=== PATIENT | female | born 1960 | race Caucasian/White ===

== ENCOUNTER 2016-06-08 09:31 | Day surgery (SDC) | payer MEDICARE ==
[2016-06-06 10:36] VITALS: BMI 31.4
[~2016-06-08 09:31] MED LIST: DEXAMETHASONE SOD PHOSPHATE 10 MG/ML 1 ML VIAL IV ONE; HYDROmorphone 1 MG/ML 1 ML SYRINGE IVP PRN; LACTATED RINGERS 1,000 ML IV SCH; MIDAZOLAM 2 MG/2 ML VIAL IV PRN; ONDANSETRON 4 MG/2 ML VIAL IVP ONE; Pre Op ABX Message 1 EACH MISC MISCELLANE ONE; SCOPOLAMINE 1.5MG/72HR PATCH TRANSDERM ONE
[2016-06-08] MEDS ORDERED: LIDOCAINE 1% 20 ML VIAL (10MG/ML) FOR IV START INTRADERMA ONE (10:34)
--- NOTE | 2016-06-08 10:52 | CT ---
EXAMINATION TYPE: CT Chest wo con Veran Protocol DATE OF EXAM: 06/08/2016 10:24 AM COMPARISON: NONE HISTORY: VERAN exam for bronchial navigation. Nodule. CT DLP: 1272 mGycm Automated exposure control for dose reduction was used. FINDINGS: The ascending thoracic aorta at the level of the main pulmonary artery is 3.9 cm. Main pulmonary rosario ry at the bifurcation is 3.1 cm. No enlarged mediastinal or hilar adenopathy is evident. A couple of small pretracheal lymph nodes are present. Emphysematous changes are evident within the lung donovan. There is a consolidation or mass in the rig ht lower lobe superior segment measuring approximately 6.4 x 2.4 cm. Series 3 image 36. Bronchial air ways are patent. Cavitation within this may be present. IMPRESSION: RIGHT LOWER LOBE MASS WITH POSSIBLE CAVITATION OR PATENT BRONCHIAL AIRWAYS.
[2016-06-08] MEDS ORDERED: SUCCINYLCHOLINE CHLORIDE 100 MG/5 ML SYR IV ONE (11:44)
[2016-06-08] MEDS ORDERED: fentaNYL (PF) 50 MCG/ML 2 ML AMP ONE (11:44)
[2016-06-08] MEDS ORDERED: MIDAZOLAM 2 MG/2 ML VIAL ONE (11:44)
[2016-06-08] MEDS ORDERED: NEOSTIGMINE 1 MG/ML 10 ML VIAL ONE (11:44)
[2016-06-08] MEDS ORDERED: ROCURONIUM BROMIDE 10 MG/ML 10 ML VIAL IV ONE (11:44)
[2016-06-08] MEDS ORDERED: PROPOFOL 10 MG/ML 20 ML VIAL IV ONE (11:44)
[2016-06-08] MEDS ORDERED: GLYCOPYRROLATE 0.2 MG/ML 2 ML VIAL ONE (11:44)
--- NOTE | 2016-06-08 13:07 | P.PCN ---
Date of Procedure: 06/08/16 Preoperative Diagnosis: RLL mass Postoperative Diagnosis: RLL mass Anesthesia: GETA Surgeon: Lyndsey Garner [employer] Advisor #1: Clara Carranza Estimated Blood Loss (ml): 0 Pathology: other Condition: stable Disposition: same day Operative Findings: This procedure was done in the operating room. A preoperative CAT scan of the chest was done for navigational planning and the CAT scan was uploaded into the navigational Veran system and the right lung lesion that was of interest was marked and the airway was identified leading into the lesion. Following this, all this information was uploaded into the system and the procedure was started The patient was intubated in the usual fashion and she was placed under general anesthesia. The intubation process was taken care of by COST ENGINEER. After securing the airway, a flexible bronchoscope was inserted to the orotracheal tube and was advanced into the lower airway. The tip of the bronchoscope centimeters above the kimberli. Airway inspection was done. The distal trachea was within normal limits. Kimberli was sharp in the midline. Bilateral mainstem bronchi were patent and within normal limits. Examination of the left lung included the left upper lobe and left lower lobe bronchussegments and subsegments and all of these airways were within normal limits. The bronchoscope was then moved to the right lung and the right upper lobe bronchus and bronchus intermedius were within normal limits. Bronchoscope was then moved to this appears segment of the right lower lobe and the 2 segments within the superior segment were quite swollen and narrowed. Nevertheless no endobronchial tumors were identified within this airway. The bronchoscope was then moved to the right middle lobe which was essentially within normal limits. Examination of the right lower lobe bronchus revealed that the airway anatomy was somewhat distorted. The lateral segment was quite narrowed and there was some mucosal irregularities causing this narrowing. The medial basilar and the posterior segment was patent. At this pointUsing navigational guidance, transbronchial biopsies to my transbronchial needle aspirates, and the transbronchial brushings of the right lower lobe lesion was done and the lesion was targeted with 0 mm accuracy. In fact all of my instruments that were utilized for biopsying and sampling were within the lesions based on the navigational measurements. At Procedure the bronchioloalveolar lavage of the lateral segment of the right lower lobe was done with a total of 80 MO's of fluid was infused into the mouth was suctioned back. The patient further the procedure without any complications. The bronchoscope was removed. The patient was extubated and following that the patient was transferred to recovery in stable condition. Further recommendations to follow based on the findings.
[2016-06-08 13:19] VITALS: TEMP 97.8
--- NOTE | 2016-06-08 13:43 | XR ---
EXAMINATION TYPE: XR chest 1V DATE OF EXAM: 06/08/2016 1:38 PM COMPARISON: 05/25/2016 HISTORY: Post bronchoscopy TECHNIQUE: Single frontal view of the chest is obtained. FINDINGS: Patchy bilateral perihilar infiltrate. Density in the right upper lobe noted on previous x -ray not as well apparent today. No definite sizable pneumothorax. Suggestion of surgical clip in the right upper quadrant abdomen. IMPRESSION: 1. No pneumothorax post bronchoscopy 2 persistent perihilar mass or consolidation
[2016-06-08] MEDS ORDERED: LACTATED RINGERS 1,000 ML IV ONE (13:59)
[2016-06-08 14:23] VITALS: RESP 18
[2016-06-08 15:19] VITALS: BP 117/72; PULSE 63
== END 2016-06-08 16:03 | disposition home or self-care (01) ==
LOC: ORWHC2ENDO 09:31
PROVIDERS: ATTEND Internal Medicine Critical Care Medicine
DX: R91.8 Other nonspecific abnormal finding of lung field (principal); J18.1 Lobar pneumonia, unspecified organism; R04.2 Hemoptysis; J44.9 Chronic obstructive pulmonary disease, unspecified; J45.909 Unspecified asthma, uncomplicated; I10 Essential (primary) hypertension; E78.5 Hyperlipidemia, unspecified; I73.9 Peripheral vascular disease, unspecified; M19.90 Unspecified osteoarthritis, unspecified site; Z86.718 Personal history of other venous thrombosis and embolism; Z79.2 Long term (current) use of antibiotics; Z79.01 Long term (current) use of anticoagulants; Z79.891 Long term (current) use of opiate analgesic; Z79.52 Long term (current) use of systemic steroids; Z79.82 Long term (current) use of aspirin; Z79.899 Other long term (current) drug therapy; Z87.891 Personal history of nicotine dependence; Z88.0 Allergy status to penicillin; Z91.048 Other nonmedicinal substance allergy status
CPT/HCPCS: 88104; 88108; 88305; 88173; 71010; 71250; 31628; 31633; 31623; 31624; 31627; 31629; J2250; J1100; J2710; J2405; J3010; J0330; J2704; 88341; 88342

== ENCOUNTER → 2016-06-18 | Outpatient (CLI) | payer MEDICARE ==
--- NOTE | 2016-06-18 17:06 | PE ---
Nuclear medicine PET/CT HISTORY: Right lower lobe lung mass Patient received 14.3 mCi F-18 FDG intravenously delayed scanning performed from the skull base to th e mid thighs. Localization and attenuation correction CT scan was performed. Correlation to chest CT 08 June 2016 Neck and chest: The cavitary lesion seen in the right lower lobe is again noted, the inflammatory alissa nge has diminished in the interval however. Ascending no mediastinal, axillary, or hilar adenopathy. No suspicious hypermetabolic uptake. Aorta is approximately 4 cm. Abdomen pelvis: No retroperitoneal adenopathy or evident mass. Patient is post cholecystectomy. Right adrenal low-attenuation focus may represent a small adenoma. No associated hypermetabolic uptake. Osseous structures: Postop changes are present in the lumbosacral spine. No suspicious hypermetabolic uptake IMPRESSION: Favor cavitary lesion due to post inflammatory change, inflammatory change has improved i n the interval, additional follow-up is recommended to resolution.
== END | disposition home or self-care (01) ==
LOC: RADPETMAIN 11:43
PROVIDERS: ATTEND Internal Medicine Critical Care Medicine
DX: R91.8 Other nonspecific abnormal finding of lung field (principal)
CPT/HCPCS: 78815; A9552

== ENCOUNTER → 2016-08-26 | Outpatient (CLI) | payer MEDICARE ==
--- NOTE | 2016-08-26 14:45 | CT ---
EXAMINATION TYPE: CT chest w con DATE OF EXAM: 08/26/2016 COMPARISON: NONE HISTORY: Pneumatocele, shortness of breath. J 98.4., Right-sided Lung mass. CT DLP: 498.40 mGycm Automated exposure control for dose reduction was used. CONTRAST: CT scan of the chest is performed with IV Contrast, patient injected with 100 ml mL of Omnipaque 300. FINDINGS: LUNGS: Emphysematous changes are noted predominantly in the lung apices. Previously described pneumat ocele along the major fissure in the left lower lobe has nearly resolved. There are a few wispy stran ds of most likely sequelae from whatever the focus was at this location. There certainly no more cavi tary focus identified. There is no pleural or pericardial effusion. The central airways are patent. N o endobronchial lesion is identified. There is no mediastinal or hilar lymphadenopathy. There are a f ew coronary arterial calcifications noted. The visualized upper abdomen is unchanged. Clips are noted in the gallbladder fossa from prior cholec ystectomy. No osteolytic or osteoblastic lesions are identified. There is a chronic deformity of the right fourth and fifth ribs. IMPRESSION: Near resolution of previously described pneumatocele along the major fissure in the left lower lobe. Continued follow-up to resolution is recommended.
== END | disposition home or self-care (01) ==
LOC: RADCTMAIN 13:26
PROVIDERS: ATTEND Thoracic Surgery (Cardiothoracic Vascular Surgery)
DX: J98.4 Other disorders of lung (principal)
CPT/HCPCS: 71260; Q9967

== ENCOUNTER → 2016-09-28 | Outpatient (CLI) | payer MEDICARE, OTHER ==
--- NOTE | 2016-09-28 08:16 | CT ---
EXAMINATION TYPE: CT chest w con DATE OF EXAM: 09/28/2016 COMPARISON: 08/26/16 and C4 517 HISTORY: Other disorder of lungs CT DLP: 775 mGycm Automated exposure control for dose reduction was used. CONTRAST: CT scan of the chest is performed with IV Contrast, patient injected with 100 ml mL of Omnipaque 300. FINDINGS: LUNGS: Upper lobe emphysematous changes noted. The right lower lobe cavitary lesion noted in June 23 has resolved completely with mild postinflammatory stranding noted. No new masses identified. No e vidence of pulmonary nodule. No focal consolidation. MEDIASTINUM: There are no greater than 1 cm hilar or mediastinal lymph nodes. No pericardial effusi on is seen. Ectasia of the ascending thoracic aorta measuring approximately 3.9 cm. The heart is not enlarged. UPPER ABDOMEN: Hepatic steatosis. OTHER: No additional significant abnormality is seen. IMPRESSION: 1. Complete resolution of previously noted infected pneumatocele right lower lobe with mild residual postinflammatory stranding.
== END | disposition home or self-care (01) ==
LOC: RADCTMAIN 07:10
PROVIDERS: ATTEND Thoracic Surgery (Cardiothoracic Vascular Surgery)
DX: J98.4 Other disorders of lung (principal)
CPT/HCPCS: 71260; Q9967

== ENCOUNTER 2016-10-13 14:00 | Inpatient (IN) | payer MEDICARE, OTHER ==
[2016-10-13] MEDS ORDERED: RX INFO: IV CONTRAST WAS GIVEN 1 EACH MISC MISCELLANE PRN (14:04)
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
[2016-10-13 14:25] LABS: Basophils # (A) 0.1 k/uL (0-0.2); Basophils % (A) 1 %; CH 29.9; CHCM 32.5; Eosinophils # (A) 0.3 k/uL (0-0.7); Eosinophils % (A) 3 %; HCT 29.6 % (34.0-46.0); HDW 3.42; HGB 9.4 gm/dL (11.4-16.0); Hypochromasia Slight; Luc # (Auto) 0.33; Luc % (Auto) 4; Lymphocytes # (A) 2.9 k/uL (1.0-4.8); Lymphocytes % (A) 36 %; MCH 29.5 pg (25.0-35.0); MCHC 31.8 g/dL (31.0-37.0); MCV 92.8 fL (80.0-100.0); Mean Platelet Volume 7.4; Monocytes # (A) 0.6 k/uL (0-1.0); Monocytes % (A) 7 %; Neutrophils # (A) 3.8 k/uL (1.3-7.7); Neutrophils % (A) 48 %; Poikilocytosis Slight; RBC 3.19 m/uL (3.80-5.40); RDW 15.7 % (11.5-15.5); WBC (Perox) 8.22
[2016-10-13 14:35] LABS: Calcium 8.4 mg/dL (8.4-10.2); Magnesium 1.8 mg/dL (1.6-2.3); Total Bilirubin 0.3 mg/dL (0.2-1.3); Total Protein 6.1 g/dL (6.3-8.2)
[2016-10-13 14:46] LABS: Creatine Kinase 45 U/L (30-135)
[2016-10-13 14:54] LABS: INR 1.8 (<1.2); Partial Thromboplastin Time 26.7 sec (22.0-30.0); Prothrombin Time 17.4 sec (9.0-12.0)
--- NOTE | 2016-10-13 14:58 | CT ---
EXAMINATION TYPE: CT chest angio for PE DATE OF EXAM: 10/13/2016 COMPARISON: CT chest September 28, 2016 HISTORY: Known lung mass with chest pain and pressure. CT DLP: 644 mGycm. Automated Exposure Control for Dose Reduction was Utilized. CONTRAST: CTA scan of the thorax is performed with IV Contrast, patient injected with 75 mL of Omnipaque 350, p ulmonary embolism protocol. MIP Images are created on CT scanner and reviewed. FINDINGS: LUNGS: Moderate underlying emphysematous change is felt present. There is dependent atelectasis in th e right lower lobe. There is new more focal prominent atelectasis or limited infiltrate superior righ t upper lobe abutting fissure near axial image 73. No pleural effusion or pneumothorax is present brionna aterally. No suspicious nodule or mass is present. Tracheobronchial tree is patent. MEDIASTINUM: There is suboptimal bolus with equal contrast seen in right and left heart systems but n o convincing CT evidence for pulmonary embolism. There are no greater than 1 cm hilar or mediastinal lymph nodes. No cardiomegaly or pericardial effusion is seen. Ascending aorta measures 3.6 cm in d iameter on axial image 67. OTHER: Cholecystectomy clip is redemonstrated. Liver is low dense consistent with fatty infiltration. IMPRESSION: 1. Suboptimal bolus without CT evidence for pulmonary embolism. 2. Moderate emphysematous change redemonstrated with slightly more prominent focal atelectasis or stearns ited infiltrate superior aspect right lower lobe noted.
[2016-10-13 14:59] LABS: Creatine Kinase MB 0.4 ng/mL (0.0-2.4); Troponin I <0.012 ng/mL (0.000-0.034)
[2016-10-13] MEDS ORDERED: MORPHINE SULFATE 4 MG/ML SYRINGE IVP STA (15:40)
[2016-10-13] MEDS ORDERED: SODIUM CHLORIDE 0.9% 1,000 ML IV ONE (15:44)
--- NOTE | 2016-10-13 16:00 | XR ---
EXAMINATION TYPE: XR chest 2V DATE OF EXAM: 10/13/2016 COMPARISON: CTA chest earlier today chest x-ray June 08, 2016 HISTORY: Chest pain TECHNIQUE: Frontal and lateral views of the chest are obtained. FINDINGS: Moderate underlying emphysematous change is present seen better on recent CT. Slightly more prominent focal atelectasis or Limited consolidation right midlung on CT of less well-seen on x-ray. There is no focal air space opacity, pleural effusion, or pneumothorax seen on x-ray. The cardiac silhouette size remains within normal limits. The osseous structures are intact. IMPRESSION: See recent CTA results which is more sensitive.
[2016-10-13] MEDS ORDERED: ALBUTEROL NEBULIZED 2.5 MG/3 ML INHALATION PRN (19:40)
[2016-10-13] MEDS ORDERED: diphenhydrAMINE 25 MG CAP PO PRN (19:40)
[2016-10-13] MEDS ORDERED: WARFARIN 5 MG TAB PO SCH (20:00)
[2016-10-13] MEDS: FUROSEMIDE 20 MG TAB PO SCH (21:15)
[2016-10-13] MEDS: HYDROcodone/APAP 10-325MG 1 EACH TAB PO PRN (21:15)
[2016-10-13] MEDS: ATORVASTATIN 10 MG TAB PO SCH (21:16)
[2016-10-13] MEDS: CYCLOBENZAPRINE 5 MG TAB PO SCH (21:16)
[2016-10-13] MEDS: MELOXICAM 7.5 MG TAB PO SCH (21:20)
[2016-10-13] MEDS: MORPHINE SULFATE ER 30 MG TABLET PO SCH (22:15)
[2016-10-13] MEDS: hydrOXYzine PAMOATE 25 MG CAP PO SCH (22:15)
[2016-10-14] MEDS: HYDROcodone/APAP 10-325MG 1 EACH TAB PO PRN ×3 (02:08→22:45)
[2016-10-14 06:42] LABS: Basophils % (A) 0 %; CH 29.1; CHCM 31.8; Eosinophils # (A) 0.2 k/uL (0-0.7); Eosinophils % (A) 3 %; HCT 28.5 % (34.0-46.0); HDW 3.42; HGB 9.1 gm/dL (11.4-16.0); Hypochromasia Slight; Luc % (Auto) 3; Lymphocytes # (A) 2.3 k/uL (1.0-4.8); Lymphocytes % (A) 34 %; MCH 29.2 pg (25.0-35.0); MCHC 31.8 g/dL (31.0-37.0); Mean Platelet Volume 6.9; Monocytes # (A) 0.4 k/uL (0-1.0); Monocytes % (A) 6 %; Neutrophils # (A) 3.6 k/uL (1.3-7.7); Neutrophils % (A) 53 %; Poikilocytosis Slight; RDW 14.9 % (11.5-15.5); WBC 6.7 k/uL (3.8-10.6); WBC (Perox) 7.15
[2016-10-14 06:47] LABS: INR 1.4 (<1.2); Prothrombin Time 14.1 sec (9.0-12.0)
[2016-10-14 07:10] LABS: Anion Gap 6 mmol/L; Blood Urea Nitrogen 20 mg/dL (7-17); Calcium 8.8 mg/dL (8.4-10.2); Carbon Dioxide 28 mmol/L (22-30); Chloride 104 mmol/L (98-107); Glucose 93 mg/dL (74-99); Non-African American GFR(MDRD) 52 (>60 ml/min/1.73 sqM); Potassium 4.5 mmol/L (3.5-5.1); Sodium 138 mmol/L (137-145)
[2016-10-14] MEDS: CYCLOBENZAPRINE 5 MG TAB PO SCH ×3 (09:10→22:44)
[2016-10-14] MEDS: DULoxetine HCL 60 MG CAPSULE.DR PO SCH (09:10)
[2016-10-14] MEDS: FUROSEMIDE 20 MG TAB PO SCH ×2 (09:10→20:33)
[2016-10-14] MEDS: ASPIRIN 81 MG CHEW PO SCH (09:10)
[2016-10-14] MEDS: MELOXICAM 7.5 MG TAB PO SCH ×2 (09:11→20:34)
[2016-10-14] MEDS: LISINOPRIL 5 MG TAB PO SCH (09:11)
[2016-10-14] MEDS: MORPHINE SULFATE ER 30 MG TABLET PO SCH ×2 (09:11→18:47)
[2016-10-14] MEDS: hydrOXYzine PAMOATE 25 MG CAP PO SCH ×4 (09:14→22:44)
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
[2016-10-14] MEDS ORDERED: HYDROmorphone 1 MG/ML 1 ML SYRINGE IVP STA (11:51)
--- NOTE | 2016-10-14 12:40 | XR ---
Left hip HISTORY: Left hip pain 2 views of the left hip without comparison Patient is status post left hip arthroplasty. Alignment is maintained. There are overlying surgical s taples. No evident fracture or dislocation. IMPRESSION: Postoperative changes.
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
[2016-10-14 14:11] LABS: % Iron Saturation 12.8 % (20-50)
[2016-10-14] MEDS: MULTIVITAMINS, THERA 1 EACH TAB PO SCH (14:20)
[2016-10-14] MEDS ORDERED: ZOLPIDEM 5 MG TAB PO PRN (14:23)
--- NOTE | 2016-10-14 19:43 | ECHOF ---
Referral Reason:syncope MEASUREMENTS -------- HEIGHT: 170.2 cm WEIGHT: 79.4 kg BP: IVSd: 1.1 cm (0.6 - 1.1) LVIDd: 5.0 cm (3.9 - 5.3) LVPWd: 1.1 cm (0.6 - 1.1) IVSs: 1.5 cm LVIDs: 3.5 cm LVPWs: 1.4 cm LAESV Index (A-L): 15.70 ml/m Ao Diam: 3.4 cm (2.0 - 3.7) AV Cusp: 1.7 cm (1.5 - 2.6) MV EXCURSION: 15.618 mm (> 18.000) MV EF SLOPE: 121 mm/s (70 - 150) EPSS: 1.7 cm MV E James: 0.65 m/s MV DecT: 240 ms MV A James: 0.98 m/s MV E/A Ratio: 0.66 RAP: 5.00 mmHg RVSP: 16.53 mmHg FINDINGS -------- Undetermined rhythm. This was a technically difficult study with suboptimal views. There is borderline concentric left ventricular hypertrophy. Overall left ventricular systolic function is normal with, an EF between 55 - 60 %. The right ventricle is normal in size and function. Normal LA size by volume 22+/-6 ml/m2. The right atrium is normal in size. 1.5mg of Definity was utilized for enhancement of images Aortic valve is trileaflet and is mildly thickened. There is no evidence of aortic regurgitation. There is no evidence of aortic stenosis. The mitral valve leaflets are mildly thickened. Mild mitral annular calcification present. There is trace mitral regurgitation. Trace tricuspid regurgitation present. There is no evidence of pulmonary hypertension. The right ventricular systolic pressure, as measured by Doppler, is 16.53mmHg. The pulmonic valve was not well visualized. The aortic root size is normal. Normal inferior vena cava with normal inspiratory collapse consistent with estimated right atrial pressure of 5 mmHg. The pericardium is normal. There is no pericardial effusion. CONCLUSIONS -------- 1. Undetermined rhythm. 2. There is trace mitral regurgitation. 3. Trace tricuspid regurgitation present. 4. There is no evidence of pulmonary hypertension. 5. The right ventricular systolic pressure, as measured by Doppler, is 16.53mmHg. 6. The pulmonic valve was not well visualized. 7. The aortic root size is normal. 8. There is no pericardial effusion. 9. This was a technically difficult study with suboptimal views. 10. There is borderline concentric left ventricular hypertrophy. 11. Overall left ventricular systolic function is normal with, an EF between 55 - 60 %. 12. Normal LA size by volume 22+/-6 ml/m2. 13. 1.5mg of Definity was utilized for enhancement of images 14. Aortic valve is trileaflet and is mildly thickened. 15. The mitral valve leaflets are mildly thickened. 16. Mild mitral annular calcification present. CLOTH BLEACHING RANGE BACK TENDER: Zurdo Membreno RDCS
[2016-10-14] MEDS: ATORVASTATIN 10 MG TAB PO SCH (20:34)
[2016-10-14 21:31] LABS: Appearance,Urine Clear (Clear); Bilirubin,Urine Negative (Negative); Glucose,Urine (UA) Negative (Negative); Ketones,Urine Negative (Negative); Leukocyte Esterase,Urine Negative (Negative); Nitrite,Urine Negative (Negative); Protein,Urine Negative (Negative); Specific Gravity,Urine 1.017 (1.001-1.035); UA Billing (MACRO vs. MICRO) CHEM; Urobilinogen,Urine <2.0 mg/dL (<2.0)
[2016-10-15] MEDS: MORPHINE SULFATE ER 30 MG TABLET PO SCH ×4 (00:18→22:53)
[2016-10-15 05:53] LABS: Basophils % (A) 1 %; CH 29.9; CHCM 32.2; Eosinophils # (A) 0.2 k/uL (0-0.7); Eosinophils % (A) 2 %; HCT 30.2 % (34.0-46.0); HDW 3.42; HGB 9.5 gm/dL (11.4-16.0); Hypochromasia Slight; Luc # (Auto) 0.11; Luc % (Auto) 2; Lymphocytes # (A) 2.5 k/uL (1.0-4.8); Lymphocytes % (A) 37 %; MCH 29.3 pg (25.0-35.0); MCHC 31.3 g/dL (31.0-37.0); MCV 93.3 fL (80.0-100.0); Mean Platelet Volume 7.8; Monocytes # (A) 0.4 k/uL (0-1.0); Monocytes % (A) 6 %; Neutrophils # (A) 3.6 k/uL (1.3-7.7); Neutrophils % (A) 53 %; Poikilocytosis Slight; RBC 3.24 m/uL (3.80-5.40); RDW 15.7 % (11.5-15.5); WBC 6.7 k/uL (3.8-10.6); WBC (Perox) 6.98
[2016-10-15 06:07] LABS: ALT 41 U/L (9-52); AST 33 U/L (14-36); Alkaline Phosphatase 152 U/L (38-126); Anion Gap 8 mmol/L; Blood Urea Nitrogen 17 mg/dL (7-17); Calcium 8.8 mg/dL (8.4-10.2); Carbon Dioxide 26 mmol/L (22-30); Chloride 104 mmol/L (98-107); Glucose 103 mg/dL (74-99); Non-African American GFR(MDRD) 58 (>60 ml/min/1.73 sqM); Potassium 4.3 mmol/L (3.5-5.1); Sodium 138 mmol/L (137-145); Total Bilirubin 0.6 mg/dL (0.2-1.3); Total Protein 6.1 g/dL (6.3-8.2)
[2016-10-15 06:14] LABS: INR 1.4 (<1.2); Prothrombin Time 13.9 sec (9.0-12.0)
[2016-10-15] MEDS: MELOXICAM 7.5 MG TAB PO SCH ×2 (08:27→19:51)
[2016-10-15] MEDS: FAMOTIDINE 20 MG TAB PO SCH (08:28)
[2016-10-15] MEDS: hydrOXYzine PAMOATE 25 MG CAP PO SCH ×4 (08:28→22:53)
[2016-10-15] MEDS: LISINOPRIL 5 MG TAB PO SCH (08:29)
[2016-10-15] MEDS: CYCLOBENZAPRINE 5 MG TAB PO SCH ×3 (08:29→22:52)
[2016-10-15] MEDS: FUROSEMIDE 20 MG TAB PO SCH ×2 (08:29→19:51)
[2016-10-15] MEDS: DULoxetine HCL 60 MG CAPSULE.DR PO SCH (08:29)
[2016-10-15] MEDS: ASPIRIN 81 MG CHEW PO SCH (08:29)
--- NOTE | 2016-10-15 09:20 | P.PN ---
Subjective Principal diagnosis: Symptomatic bradycardia This is a pleasant 56-year-old female patient with known hypertension was receiving Toprol-XL as an outpatient was admitted to the hospital with syncope. She was found to have severe bradycardia with the initial EKG showed advanced AV block. The Toprol-XL was stopped. The heart rate has recovered nicely. Her heart rate has been in the 70s and 80s. The EKG from today showed sinus rhythm with bifascicular block. She underwent an echocardiogram which showed normal LV function. Objective - Vital Signs Vital signs: Vital Signs Temp 97.5 F L 10/15/16 03:52 Pulse 78 10/15/16 03:54 Resp 19 10/15/16 03:54 BP 118/75 10/15/16 03:52 Pulse Ox 98 10/15/16 08:44 Intake & Output 10/14/16 10/15/16 10/15/16 18:59 06:59 18:59 Intake Total 720 250 Output Total 3600 600 Balance -2880 -350 Weight 87.2 kg Intake: Oral 720 250 Output: Urine 3600 600 Other: Voiding Method Toilet Bedside Commode # Voids 2 1 - Constitutional General appearance: Present: no acute distress - Respiratory Respiratory: bilateral: CTA - Cardiovascular Rhythm: regular Heart sounds: normal: S1, S2 - Labs CBC & Chem 7: 10/15/16 05:38 10/15/16 05:38 Labs: Abnormal Lab Results - Last 24 Hours (Table) 10/14/16 10/15/16 10/15/16 Range/Units 10:13 05:38 05:38 RBC 3.24 L (3.80-5.40) m/uL Hgb 9.5 L (11.4-16.0) gm/dL Hct 30.2 L (34.0-46.0) % RDW 15.7 H (11.5-15.5) % PT 13.9 H (9.0-12.0) sec INR 1.4 H (<1.2) Glucose (74-99) mg/dL % Saturation 12.8 L (20-50) % Alkaline Phosphatase (38-126) U/L Total Protein (6.3-8.2) g/dL Albumin (3.5-5.0) g/dL Vitamin B12 972 H (239-931) pg/mL 10/15/16 Range/Units 05:38 RBC (3.80-5.40) m/uL Hgb (11.4-16.0) gm/dL Hct (34.0-46.0) % RDW (11.5-15.5) % PT (9.0-12.0) sec INR (<1.2) Glucose 103 H (74-99) mg/dL % Saturation (20-50) % Alkaline Phosphatase 152 H (38-126) U/L Total Protein 6.1 L (6.3-8.2) g/dL Albumin 3.4 L (3.5-5.0) g/dL Vitamin B12 (239-931) pg/mL Assessment and Plan Plan: This is a pleasant 56-year-old female patient was admitted with symptomatic bradycardia. We'll continue holding the beta daniel at this point. Continue monitoring the heart rate for additional 24 hours. Possible discharge home tomorrow.
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
[2016-10-15] MEDS: MULTIVITAMINS, THERA 1 EACH TAB PO SCH (12:00)
--- NOTE | 2016-10-15 12:51 | P.PN ---
Subjective This is a 56-year-old female with a known past medical history of recent left hip surgery with Dr. Moses and is currently on Coumadin for DVT prevention. She also has a history of hypertension, COPD, and DVT about 14 years ago. Patient presents to the hospital after a syncopal episode. Patient reports that she was having lunch with her brother was walking around in the kitchen and came back to her seat with severe chest pressure having shortness of breath and then she passed out. She has had previous syncopal episodes with unclear etiology. Patient's brother called been S patient was brought into the emergency room. EKG had shown evidence of a third-degree AV block. Her metoprolol has been placed on hold. Cardiology consulted. They're assessing patient for possible pacemaker placement tomorrow. Coumadin has been placed on hold. Patient is CTA of the chest which was negative for PE but did show some emphysematous changes and atelectasis. I was brought into reevaluate patient again after she got up to use the restroom she felt her left hip pop she was able to get back to bed. X-ray of the hip was done stat and it's just revealing postop changes. She was given a dose of IV Dilaudid. Patient denies any fevers chills or sweats. She is no longer having the chest pressure or shortness of breath. She denies any nausea or vomiting any bowel movement changes or urinary symptoms. on 10/15/2016 patient is feeling better she is in normal sinus rhythm, she is complaining of hip pain and difficulty walking otherwise no complaints Objective - Vital Signs Vital signs: Vital Signs Temp 98.7 F 10/15/16 12:00 Pulse 98 10/15/16 12:00 Resp 18 10/15/16 12:00 BP 120/89 10/15/16 12:00 Pulse Ox 94 L 10/15/16 12:00 Intake & Output 10/14/16 10/15/16 10/15/16 18:59 06:59 18:59 Intake Total 720 250 240 Output Total 3600 600 Balance -2880 -350 240 Weight 87.2 kg Intake: Oral 720 250 240 Output: Urine 3600 600 Other: Voiding Method Toilet Bedside Commode # Voids 2 1 2 - Exam In general patient is alert and oriented 3 HEENT head normocephalic and atraumatic Neck is supple no JVD no goiter no lymphadenopathy Chest is clear to auscultation no wheezing Cardiac exam reveals regular heart sounds no murmurs Abdomen is soft nontender no organomegaly Extremity exam reveals no edema no cyanosis or clubbing - Labs CBC & Chem 7: 10/15/16 05:38 10/15/16 05:38 Labs: Abnormal Lab Results - Last 24 Hours (Table) 10/14/16 10/15/16 10/15/16 Range/Units 10:13 05:38 05:38 RBC 3.24 L (3.80-5.40) m/uL Hgb 9.5 L (11.4-16.0) gm/dL Hct 30.2 L (34.0-46.0) % RDW 15.7 H (11.5-15.5) % PT 13.9 H (9.0-12.0) sec INR 1.4 H (<1.2) Glucose (74-99) mg/dL % Saturation 12.8 L (20-50) % Alkaline Phosphatase (38-126) U/L Total Protein (6.3-8.2) g/dL Albumin (3.5-5.0) g/dL Vitamin B12 972 H (239-931) pg/mL 10/15/16 Range/Units 05:38 RBC (3.80-5.40) m/uL Hgb (11.4-16.0) gm/dL Hct (34.0-46.0) % RDW (11.5-15.5) % PT (9.0-12.0) sec INR (<1.2) Glucose 103 H (74-99) mg/dL % Saturation (20-50) % Alkaline Phosphatase 152 H (38-126) U/L Total Protein 6.1 L (6.3-8.2) g/dL Albumin 3.4 L (3.5-5.0) g/dL Vitamin B12 (239-931) pg/mL Assessment and Plan Plan: 1. Syncopal episode with previous syncopal episodes likely secondary to complete heart block. Initial EKG had shown a complete heart block in the emergency room. Troponins were negative 3 sets. Her metoprolol has been placed on hold. CT of the chest was negative for PE. Cardiology consulted they have ordered an echocardiogram. And they're evaluating her for possible pacemaker placement tomorrow. Thyroid level within normal range. Awaiting decision in that regard to pacemaker placement currently patient is in normal sinus rhythm 2. Recent left hip surgery on October [address] Moses. Patient on Coumadin for DVT prophylaxis. Coumadin on hold for pacemaker placement. Concerned about dislocating left hip. X-ray showing no evidence of dislocation. Patient did receive 1 dose of IV Dilaudid for pain control. 3. Anemia hemoglobin 9.1. We'll check iron studies and a B12 level. 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 Acute kidney injury creatinine 1.32 on admission now down to 1.08 after fluids. Continue to monitor 5. Recent UTI in which she was finishing up Bactrim at home. Patient no longer having urinary symptoms. Check urinalysis before restarting antibiotic 6. Essential hypertension 7. Hyperlipidemia continue Lipitor GI prophylaxis Pepcid and DVT prophylaxis on hold for pacemaker placement tomorrow
[2016-10-15] MEDS: IPRATROPIUM-ALBUTEROL 3 ML NEB INHALATION SCH ×2 (16:02→20:35)
[2016-10-15] MEDS: ATORVASTATIN 10 MG TAB PO SCH (19:51)
[2016-10-16] MEDS: HYDROcodone/APAP 10-325MG 1 EACH TAB PO PRN (04:36)
[2016-10-16 06:08] LABS: Basophils % (A) 0 %; CHCM 32.6; Eosinophils # (A) 0.1 k/uL (0-0.7); Eosinophils % (A) 2 %; HCT 30.8 % (34.0-46.0); HDW 3.42; HGB 9.6 gm/dL (11.4-16.0); Hypochromasia Slight; Luc # (Auto) 0.13; Luc % (Auto) 2; Lymphocytes # (A) 2.5 k/uL (1.0-4.8); Lymphocytes % (A) 34 %; MCH 28.8 pg (25.0-35.0); MCHC 31.1 g/dL (31.0-37.0); MCV 92.8 fL (80.0-100.0); Mean Platelet Volume 7.6; Monocytes # (A) 0.4 k/uL (0-1.0); Monocytes % (A) 6 %; Neutrophils # (A) 4.2 k/uL (1.3-7.7); Neutrophils % (A) 57 %; Poikilocytosis Slight; RBC 3.32 m/uL (3.80-5.40); RDW 15.5 % (11.5-15.5); WBC 7.4 k/uL (3.8-10.6); WBC (Perox) 7.94
[2016-10-16 06:21] LABS: ALT 40 U/L (9-52); AST 28 U/L (14-36); Alkaline Phosphatase 160 U/L (38-126); Anion Gap 11 mmol/L; Blood Urea Nitrogen 15 mg/dL (7-17); Calcium 9.3 mg/dL (8.4-10.2); Carbon Dioxide 25 mmol/L (22-30); Chloride 104 mmol/L (98-107); Glucose 108 mg/dL (74-99); Non-African American GFR(MDRD) >60 (>60 ml/min/1.73 sqM); Potassium 4.2 mmol/L (3.5-5.1); Sodium 140 mmol/L (137-145); Total Bilirubin 0.7 mg/dL (0.2-1.3); Total Protein 6.2 g/dL (6.3-8.2)
[2016-10-16 06:35] LABS: INR 1.3 (<1.2); Prothrombin Time 12.5 sec (9.0-12.0)
[2016-10-16] MEDS: ASPIRIN 81 MG CHEW PO SCH (08:10)
[2016-10-16] MEDS: LISINOPRIL 5 MG TAB PO SCH (08:10)
[2016-10-16] MEDS: MELOXICAM 7.5 MG TAB PO SCH ×2 (08:10→22:44)
[2016-10-16] MEDS: FUROSEMIDE 20 MG TAB PO SCH ×2 (08:10→22:36)
[2016-10-16] MEDS: FAMOTIDINE 20 MG TAB PO SCH (08:10)
[2016-10-16] MEDS: CYCLOBENZAPRINE 5 MG TAB PO SCH ×3 (08:10→22:36)
[2016-10-16] MEDS: DULoxetine HCL 60 MG CAPSULE.DR PO SCH (08:10)
[2016-10-16] MEDS: hydrOXYzine PAMOATE 25 MG CAP PO SCH ×4 (08:11→22:45)
[2016-10-16] MEDS: MORPHINE SULFATE ER 30 MG TABLET PO SCH ×3 (08:11→22:45)
[2016-10-16] MEDS: IPRATROPIUM-ALBUTEROL 3 ML NEB INHALATION SCH ×4 (09:09→21:33)
--- NOTE | 2016-10-16 09:32 | P.PN ---
Subjective This is a 56-year-old female with a known past medical history of recent left hip surgery with Dr. Moses and is currently on Coumadin for DVT prevention. She also has a history of hypertension, COPD, and DVT about 14 years ago. Patient presents to the hospital after a syncopal episode. Patient reports that she was having lunch with her brother was walking around in the kitchen and came back to her seat with severe chest pressure having shortness of breath and then she passed out. She has had previous syncopal episodes with unclear etiology. Patient's brother called been S patient was brought into the emergency room. EKG had shown evidence of a third-degree AV block. Her metoprolol has been placed on hold. Cardiology consulted. They're assessing patient for possible pacemaker placement tomorrow. Coumadin has been placed on hold. Patient is CTA of the chest which was negative for PE but did show some emphysematous changes and atelectasis. I was brought into reevaluate patient again after she got up to use the restroom she felt her left hip pop she was able to get back to bed. X-ray of the hip was done stat and it's just revealing postop changes. She was given a dose of IV Dilaudid. Patient denies any fevers chills or sweats. She is no longer having the chest pressure or shortness of breath. She denies any nausea or vomiting any bowel movement changes or urinary symptoms. on 10/15/2016 patient is feeling better she is in normal sinus rhythm, she is complaining of hip pain and difficulty walking otherwise no complaints On 10/16/2016 patient was seen and examined, she is feeling well she denies any complaints, she is in sinus tachycardia with heart rate 120-130, she was seen by Dr. Isaacs this morning and metoprolol was added to her regimen. She will be monitored for 1 more day in the hospital, cardiology is still evaluating to assess need for pacemaker. Objective - Vital Signs Vital signs: Vital Signs Temp 97.8 F 10/16/16 04:00 Pulse 84 10/16/16 04:00 Resp 19 10/16/16 04:00 BP 121/85 10/16/16 04:00 Pulse Ox 95 10/16/16 04:00 Intake & Output 10/15/16 10/16/16 10/16/16 18:59 06:59 18:59 Intake Total 720 250 Output Total 300 Balance 720 -50 Weight 88.1 kg Intake: Oral 720 250 Output: Urine 300 Other: Voiding Method Toilet Bedside Commode # Voids 2 2 - Exam In general patient is alert and oriented 3 HEENT head normocephalic and atraumatic Neck is supple no JVD no goiter no lymphadenopathy Chest is clear to auscultation no wheezing Cardiac exam reveals regular heart sounds no murmurs Abdomen is soft nontender no organomegaly Extremity exam reveals no edema no cyanosis or clubbing - Labs CBC & Chem 7: 10/16/16 05:47 10/16/16 05:47 Labs: Abnormal Lab Results - Last 24 Hours (Table) 10/16/16 10/16/16 10/16/16 Range/Units 05:47 05:47 05:47 RBC 3.32 L (3.80-5.40) m/uL Hgb 9.6 L (11.4-16.0) gm/dL Hct 30.8 L (34.0-46.0) % PT 12.5 H (9.0-12.0) sec INR 1.3 H (<1.2) Glucose 108 H (74-99) mg/dL Alkaline Phosphatase 160 H (38-126) U/L Total Protein 6.2 L (6.3-8.2) g/dL Albumin 3.4 L (3.5-5.0) g/dL Assessment and Plan Plan: 1. Syncopal episode with previous syncopal episodes likely secondary to complete heart block. Initial EKG had shown a complete heart block in the emergency room. Troponins were negative 3 sets. Her metoprolol has been placed on hold. CT of the chest was negative for PE. Cardiology consulted they have ordered an echocardiogram. And they're evaluating her for possible pacemaker placement tomorrow. Thyroid level within normal range. Awaiting decision in that regard to pacemaker placement currently patient is in normal sinus rhythm, with sinus tachycardia Dr. Murrieta added metoprolol to her regimen today 2. Recent left hip surgery on October [address] Moses. Patient on Coumadin for DVT prophylaxis. Coumadin on hold for pacemaker placement. Concerned about dislocating left hip. X-ray showing no evidence of dislocation. Patient did receive 1 dose of IV Dilaudid for pain control. 3. Anemia hemoglobin 9.1. We'll check iron studies and a B12 level. 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 Acute kidney injury creatinine 1.32 on admission now down to 1.08 after fluids. Continue to monitor 5. Recent UTI in which she was finishing up Bactrim at home. Patient no longer having urinary symptoms. Check urinalysis before restarting antibiotic 6. Essential hypertension 7. Hyperlipidemia continue Lipitor GI prophylaxis Pepcid and DVT prophylaxis on hold for pacemaker placement tomorrow
--- NOTE | 2016-10-16 09:47 | P.PN ---
Subjective Principal diagnosis: Symptomatic bradycardia This is a pleasant 56-year-old female patient with known hypertension was receiving Toprol-XL as an outpatient was admitted to the hospital with syncope. She was found to have severe bradycardia with the initial EKG showed advanced AV block. The Toprol-XL was stopped. The heart rate has recovered but she has been in sinus tachycardia and resting tachycardia with a resting heart rate around 110 beats per minutes. She underwent an echocardiogram which showed normal LV function. Objective - Vital Signs Vital signs: Vital Signs Temp 97.8 F 10/16/16 04:00 Pulse 84 10/16/16 04:00 Resp 19 10/16/16 04:00 BP 121/85 10/16/16 04:00 Pulse Ox 95 10/16/16 04:00 Intake & Output 10/15/16 10/16/16 10/16/16 18:59 06:59 18:59 Intake Total 720 250 Output Total 300 Balance 720 -50 Weight 88.1 kg Intake: Oral 720 250 Output: Urine 300 Other: Voiding Method Toilet Bedside Commode # Voids 2 2 - Constitutional General appearance: Present: no acute distress - Respiratory Respiratory: bilateral: CTA - Cardiovascular Rhythm: regular Heart sounds: normal: S1, S2 - Labs CBC & Chem 7: 10/16/16 05:47 10/16/16 05:47 Labs: Abnormal Lab Results - Last 24 Hours (Table) 10/16/16 10/16/16 10/16/16 Range/Units 05:47 05:47 05:47 RBC 3.32 L (3.80-5.40) m/uL Hgb 9.6 L (11.4-16.0) gm/dL Hct 30.8 L (34.0-46.0) % PT 12.5 H (9.0-12.0) sec INR 1.3 H (<1.2) Glucose 108 H (74-99) mg/dL Alkaline Phosphatase 160 H (38-126) U/L Total Protein 6.2 L (6.3-8.2) g/dL Albumin 3.4 L (3.5-5.0) g/dL Assessment and Plan Plan: I'm going to restart the patient on metoprolol tartrate at 12.5 mg by mouth twice a day and continue monitor the heart rate for additional 24 hours. I recommended discharging the patient tomorrow on event monitor for 4 weeks but the patient states she had an event monitor few months ago. We'll obtain the results of that from the office. We'll continue following up with the patient and further recommendation to follow that.
[2016-10-16] MEDS: METOPROLOL TARTRATE 12.5 MG TAB PO SCH ×2 (11:12→22:36)
[2016-10-16] MEDS: MULTIVITAMINS, THERA 1 EACH TAB PO SCH (12:50)
[2016-10-16] MEDS: ATORVASTATIN 10 MG TAB PO SCH (22:37)
[2016-10-17] MEDS: HYDROcodone/APAP 10-325MG 1 EACH TAB PO PRN ×2 (04:49→12:06)
[2016-10-17 06:29] LABS: Basophils # (A) 0.1 k/uL (0-0.2); Basophils % (A) 1 %; CH 29.7; CHCM 31.6; Eosinophils # (A) 0.3 k/uL (0-0.7); Eosinophils % (A) 3 %; HCT 32.8 % (34.0-46.0); HDW 3.46; HGB 10.2 gm/dL (11.4-16.0); Hypochromasia Moderate; Luc # (Auto) 0.17; Luc % (Auto) 2; Lymphocytes # (A) 3.6 k/uL (1.0-4.8); Lymphocytes % (A) 33 %; MCH 29.4 pg (25.0-35.0); MCV 94.8 fL (80.0-100.0); Mean Platelet Volume 7.2; Monocytes # (A) 0.5 k/uL (0-1.0); Monocytes % (A) 4 %; Neutrophils # (A) 6.4 k/uL (1.3-7.7); Neutrophils % (A) 58 %; Poikilocytosis Slight; RBC 3.47 m/uL (3.80-5.40); RDW 15.3 % (11.5-15.5); WBC (Perox) 10.63
[2016-10-17 06:40] LABS: INR 1.1 (<1.2)
[2016-10-17 06:50] LABS: ALT 39 U/L (9-52); AST 28 U/L (14-36); Alkaline Phosphatase 145 U/L (38-126); Anion Gap 12 mmol/L; Blood Urea Nitrogen 18 mg/dL (7-17); Calcium 9.1 mg/dL (8.4-10.2); Carbon Dioxide 24 mmol/L (22-30); Chloride 101 mmol/L (98-107); Glucose 96 mg/dL (74-99); Non-African American GFR(MDRD) 55 (>60 ml/min/1.73 sqM); Potassium 4.2 mmol/L (3.5-5.1); Sodium 137 mmol/L (137-145); Total Bilirubin 0.6 mg/dL (0.2-1.3); Total Protein 6.7 g/dL (6.3-8.2)
[2016-10-17] MEDS: IPRATROPIUM-ALBUTEROL 3 ML NEB INHALATION SCH ×4 (07:37→19:22)
[2016-10-17] MEDS: ASPIRIN 81 MG CHEW PO SCH (08:10)
[2016-10-17] MEDS: FUROSEMIDE 20 MG TAB PO SCH ×2 (08:11→21:46)
[2016-10-17] MEDS: DULoxetine HCL 60 MG CAPSULE.DR PO SCH (08:11)
[2016-10-17] MEDS: hydrOXYzine PAMOATE 25 MG CAP PO SCH ×4 (08:11→21:51)
[2016-10-17] MEDS: FAMOTIDINE 20 MG TAB PO SCH (08:11)
[2016-10-17] MEDS: CYCLOBENZAPRINE 5 MG TAB PO SCH ×3 (08:12→21:47)
[2016-10-17] MEDS: LISINOPRIL 5 MG TAB PO SCH (08:12)
[2016-10-17] MEDS: MELOXICAM 7.5 MG TAB PO SCH ×2 (08:39→21:46)
[2016-10-17] MEDS: METOPROLOL TARTRATE 12.5 MG TAB PO SCH ×2 (08:39→21:47)
[2016-10-17] MEDS: MORPHINE SULFATE ER 30 MG TABLET PO SCH ×3 (08:39→21:52)
--- NOTE | 2016-10-17 09:30 | P.PN ---
Subjective Principal diagnosis: Symptomatic bradycardia This is a pleasant 56-year-old female patient with known hypertension was receiving Toprol-XL as an outpatient was admitted to the hospital with syncope. She was found to have severe bradycardia with the initial EKG showed advanced AV block. The Toprol-XL was stopped. The heart rate has recovered but she has been in sinus tachycardia and resting tachycardia with a resting heart rate around 110 beats per minutes. She underwent an echocardiogram which showed normal LV function. Objective - Vital Signs Vital signs: Vital Signs Temp 97.9 F 10/17/16 04:00 Pulse 84 10/17/16 07:47 Resp 18 10/17/16 04:00 BP 106/65 10/17/16 04:00 Pulse Ox 94 L 10/17/16 04:00 Intake & Output 10/16/16 10/17/16 10/17/16 18:59 06:59 18:59 Intake Total 960 Output Total 200 Balance 760 Weight 94.8 kg Intake: Oral 960 Output: Urine 200 Other: Voiding Method Toilet # Voids 1 2 # Bowel Movements 0 - Constitutional General appearance: Present: no acute distress - Respiratory Respiratory: bilateral: CTA - Cardiovascular Rhythm: regular Heart sounds: normal: S1, S2 - Labs CBC & Chem 7: 10/17/16 05:49 10/17/16 05:49 Labs: Abnormal Lab Results - Last 24 Hours (Table) 10/17/16 10/17/16 Range/Units 05:49 05:49 WBC 11.0 H (3.8-10.6) k/uL RBC 3.47 L (3.80-5.40) m/uL Hgb 10.2 L (11.4-16.0) gm/dL Hct 32.8 L (34.0-46.0) % BUN 18 H (7-17) mg/dL Alkaline Phosphatase 145 H (38-126) U/L Assessment and Plan Plan: I'm going to restart the patient on metoprolol tartrate at 12.5 mg by mouth twice a day and continue monitor the heart rate for additional 24 hours. I recommended discharging the patient tomorrow on event monitor for 4 weeks but the patient states she had an event monitor few months ago. We'll obtain the results of that from the office. We'll continue following up with the patient and further recommendation to follow that.
[2016-10-17] MEDS ORDERED: ceFAZolin 1,000 MG in SODIUM CHLORIDE 0.9% IRRIGATIO 250 ML IRRIGATION ONE (10:58)
[2016-10-17] MEDS ORDERED: ceFAZolin 2 GM in SODIUM CHLORIDE 0.9% 100 ML IVPB ONE (10:58)
--- NOTE | 2016-10-17 12:05 | P.PN ---
Subjective This is a 56-year-old female with a known past medical history of recent left hip surgery with Dr. Moses and is currently on Coumadin for DVT prevention. She also has a history of hypertension, COPD, and DVT about 14 years ago. Patient presents to the hospital after a syncopal episode. Patient reports that she was having lunch with her brother was walking around in the kitchen and came back to her seat with severe chest pressure having shortness of breath and then she passed out. She has had previous syncopal episodes with unclear etiology. Patient's brother called been S patient was brought into the emergency room. EKG had shown evidence of a third-degree AV block. Her metoprolol has been placed on hold. Cardiology consulted. They're assessing patient for possible pacemaker placement tomorrow. Coumadin has been placed on hold. Patient is CTA of the chest which was negative for PE but did show some emphysematous changes and atelectasis. I was brought into reevaluate patient again after she got up to use the restroom she felt her left hip pop she was able to get back to bed. X-ray of the hip was done stat and it's just revealing postop changes. She was given a dose of IV Dilaudid. Patient denies any fevers chills or sweats. She is no longer having the chest pressure or shortness of breath. She denies any nausea or vomiting any bowel movement changes or urinary symptoms. 10/17/2016 patient has been currently in sinus rhythm. She had some sinus tachycardia over the weekend and metoprolol low-dose was added cardiology. She reports still feeling some shortness of breath and chest pressure whenever she tries to get up to ambulate. She denies any nausea vomiting bowel movement changes or urinary symptoms. Her left hip pain is better controlled. And she' ll be following up with Dr. Moses outpatient. Her white count has jumped up to 11. Patient not reporting any new signs of infection. She's been afebrile. Denies any cough any burning with urination or diarrhea. Incision site on left hip examined no significant cellulitis noted Objective - Vital Signs Vital signs: Vital Signs Temp 98.2 F 10/17/16 08:00 Pulse 81 10/17/16 08:00 Resp 18 10/17/16 08:00 BP 133/88 10/17/16 08:00 Pulse Ox 96 08/14/17 08:00 Intake & Output 10/16/16 10/17/16 10/17/16 18:59 06:59 18:59 Intake Total 960 Output Total 200 Balance 760 Weight 94.8 kg Intake: Oral 960 Output: Urine 200 Other: Voiding Method Toilet Toilet # Voids 1 2 # Bowel Movements 0 - Exam Head normocephalic Neck supple Lungs clear to auscultation bilaterally no wheezing or crackles Heart regular rate and rhythm S1-S2, no rub or gallop Abdomen is soft nontender nondistended positive bowel sounds no hepatosplenomegaly Extremities no edema. Left hip incision site no significant cellulitis. There is some red irritation where the incision site is folded in the groin area. Very Minimal serous drainage noted Neuro alert and orientated to 3 - Labs CBC & Chem 7: 10/17/16 05:49 10/17/16 05:49 Labs: Abnormal Lab Results - Last 24 Hours (Table) 10/17/16 10/17/16 Range/Units 05:49 05:49 WBC 11.0 H (3.8-10.6) k/uL RBC 3.47 L (3.80-5.40) m/uL Hgb 10.2 L (11.4-16.0) gm/dL Hct 32.8 L (34.0-46.0) % BUN 18 H (7-17) mg/dL Alkaline Phosphatase 145 H (38-126) U/L Assessment and Plan Plan: 1. Syncopal episode with previous syncopal episodes likely secondary to complete heart block. Initial EKG had shown a complete heart block in the emergency room. Troponins were negative [address] of the chest was negative for PE. Thyroid level within normal range. Cardiology is planning on pacemaker placement tomorrow 2. Recent left hip surgery on October [address] Moses. Patient on Coumadin for DVT prophylaxis. Coumadin on hold for pacemaker placement. Concerned about dislocating left hip. X-ray showing no evidence of dislocation. Pain is controlled. Patient will follow-up with Dr. Moses outpatient 3. Anemia hemoglobin 9.1. Hemoglobin is up to 10.2. B12 level elevated at 972 and total iron within normal range. 4. Acute kidney injury creatinine 1.32 on admission now down to 1.08 after fluids. Continue to monitor 5. Recent UTI in which she was finishing up Bactrim at home. Patient no longer having urinary symptoms. Her analysis negative. Need for antibiotics 6. Essential hypertension 7. Hyperlipidemia continue Lipitor 8. Sinus tachycardia cardiology started a low-dose of metoprolol. Heart rate has shown improvement. Continue to monitor GI prophylaxis Pepcid and DVT prophylaxis with Coumadin on hold for pacemaker placement
[2016-10-17] MEDS: MULTIVITAMINS, THERA 1 EACH TAB PO SCH (12:06)
[2016-10-17 14:38] LABS: Glucose,Whole Blood 109 mg/dL (75-99)
--- NOTE | 2016-10-17 16:05 | P.PN ---
Subjective Principal diagnosis: Syncope This is a 56-year-old female who was a minute to the hospital with a syncopal episode. On admission here she was found to have advanced AV block on her EKG. Her Toprol was initially held, the heart rate had picked up nicely and yesterday a small dose of Toprol was reinitiated because of tachycardia. In spite of being on a low-dose of Toprol, the heart rate today continued to be in the 1 teens range. For this reason patient was advised to undergo implantation of a permanent pacemaker tomorrow for evidence of tachycardia bradycardia syndrome. The risks and benefits were explained to the patient in detail and she is willing to proceed. Objective - Vital Signs Vital signs: Vital Signs Temp 98.1 F 10/17/16 12:00 Pulse 84 10/17/16 12:00 Resp 18 10/17/16 12:00 BP 117/56 10/17/16 12:00 Pulse Ox 93 L 10/17/16 12:00 Intake & Output 10/16/16 10/17/16 10/17/16 18:59 06:59 18:59 Intake Total 960 100 Output Total 200 Balance 760 100 Weight 94.8 kg Intake: Oral 960 100 Output: Urine 200 Other: Voiding Method Toilet Toilet # Voids 1 2 2 # Bowel Movements 0 - Exam PHYSICAL EXAMINATION: HEENT: Head is atraumatic, normocephalic. Pupils equal, round. Neck is supple. There is no elevated jugular venous pressure. HEART EXAMINATION: Heart S1 and S2 systolic murmur is heard. CHEST EXAMINATION:Lungs reveal fine expiratory wheezes. ABDOMEN: Soft, nontender. Bowel sounds are heard. No organomegaly noted. EXTREMITIES: 2+ peripheral pulses with no evidence of peripheral edema and no calf tenderness noted. NEUROLOGIC patient is awake, alert and oriented -3. - Labs CBC & Chem 7: 10/17/16 05:49 10/17/16 05:49 Labs: Abnormal Lab Results - Last 24 Hours (Table) 10/17/16 10/17/16 10/17/16 Range/Units 05:49 05:49 14:18 WBC 11.0 H (3.8-10.6) k/uL RBC 3.47 L (3.80-5.40) m/uL Hgb 10.2 L (11.4-16.0) gm/dL Hct 32.8 L (34.0-46.0) % BUN 18 H (7-17) mg/dL POC Glucose (mg/dL) 109 H (75-99) mg/dL Alkaline Phosphatase 145 H (38-126) U/L Assessment and Plan Plan: Assessment and plan #1 syncope, with recent multiple syncopal episodes. Complete heart block on initial EKG. Subsequent EKG shows normal sinus rhythm with a bifascicular block. #2 hypertension #3 hyperlipidemia #4 recent left hip surgery, patient is on Coumadin for anticoagulation for recent hip surgery. #5 renal insufficiency, creatinine this morning #6 history of DVT Plan Patient has evidence of tachycardia today, in spite of being resumed on low- dose of beta daniel yesterday. He cuts of the evidence of tachybradycardia syndrome and is felt that the patient may benefit from implantation of a permanent pacemaker. This will be performed tomorrow by Dr. Dasilva. The risks and benefits were explained to the patient in detail. DNP note has been reviewed, I agree with a documented findings and plan of care. Patient was seen and examined.
[2016-10-17] MEDS ORDERED: HEPARIN SODIUM,PORCINE 5,000 UNIT/ML 1 ML VIAL SQ SCH (21:00)
[2016-10-17] MEDS: ATORVASTATIN 10 MG TAB PO SCH (21:46)
[2016-10-18] MEDS: SODIUM CHLORIDE 0.9% 1,000 ML IV SCH ×2 (06:00→16:50)
[2016-10-18] MEDS: ASPIRIN 81 MG CHEW PO SCH (06:01)
[2016-10-18] MEDS: CYCLOBENZAPRINE 5 MG TAB PO SCH ×3 (06:01→22:14)
[2016-10-18] MEDS: LISINOPRIL 5 MG TAB PO SCH (06:02)
[2016-10-18] MEDS: METOPROLOL TARTRATE 12.5 MG TAB PO SCH ×2 (06:02→22:13)
[2016-10-18] MEDS: FAMOTIDINE 20 MG TAB PO SCH (06:02)
[2016-10-18] MEDS: DULoxetine HCL 60 MG CAPSULE.DR PO SCH (06:02)
[2016-10-18] MEDS: MELOXICAM 7.5 MG TAB PO SCH ×2 (06:03→22:13)
[2016-10-18] MEDS: hydrOXYzine PAMOATE 25 MG CAP PO SCH ×4 (06:06→22:17)
[2016-10-18] MEDS: MORPHINE SULFATE ER 30 MG TABLET PO SCH ×3 (06:06→22:17)
[2016-10-18 06:19] LABS: Glucose,Whole Blood 140 mg/dL (75-99)
[2016-10-18 07:20] LABS: Basophils % (A) 1 %; CH 29.7; CHCM 32.2; Eosinophils # (A) 0.3 k/uL (0-0.7); Eosinophils % (A) 4 %; HCT 31.4 % (34.0-46.0); HDW 3.54; HGB 9.8 gm/dL (11.4-16.0); Hypochromasia Moderate; Luc # (Auto) 0.15; Luc % (Auto) 2; Lymphocytes # (A) 2.6 k/uL (1.0-4.8); Lymphocytes % (A) 34 %; MCHC 31.3 g/dL (31.0-37.0); MCV 92.6 fL (80.0-100.0); Mean Platelet Volume 7.2; Monocytes # (A) 0.4 k/uL (0-1.0); Monocytes % (A) 5 %; Neutrophils # (A) 4.2 k/uL (1.3-7.7); Neutrophils % (A) 55 %; Poikilocytosis Slight; RBC 3.39 m/uL (3.80-5.40); RDW 15.2 % (11.5-15.5); WBC 7.7 k/uL (3.8-10.6); WBC (Perox) 8.01
[2016-10-18] MEDS ORDERED: CLINDAMYCIN 600 MG in DEXTROSE 5% IN WATER 50 ML IVPB STA ×2 (07:37)
[2016-10-18] MEDS ORDERED: CLINDAMYCIN 600 MG in SODIUM CHLORIDE 0.9% IRRIGATIO 250 ML IRRIGATION STA (07:47)
[2016-10-18] MEDS ORDERED: SODIUM CHLORIDE 0.9% 1,000 ML IV ONE (08:01)
[2016-10-18] MEDS ORDERED: IODIXANOL 320 MG/ML 100 ML IV ONE (08:03)
[2016-10-18] MEDS: fentaNYL (PF) 50 MCG/ML 2 ML AMP IVP ONE ×3 (08:05→09:25)
[2016-10-18] MEDS ORDERED: LIDOCAINE 1% INJ 10MG/ML (20 ML MDV) SQ ONE (08:18)
[2016-10-18] MEDS: MIDAZOLAM 2 MG/2 ML VIAL IVP ONE ×2 (08:20→08:29)
[2016-10-18] MEDS ORDERED: ACETAMINOPHEN TAB 325 MG TAB PO PRN (09:21)
[2016-10-18] MEDS: IPRATROPIUM-ALBUTEROL 3 ML NEB INHALATION SCH ×4 (09:23→19:59)
[2016-10-18] MEDS: FUROSEMIDE 20 MG TAB PO SCH ×2 (12:14→22:13)
[2016-10-18] MEDS: MULTIVITAMINS, THERA 1 EACH TAB PO SCH (12:14)
[2016-10-18] MEDS: HYDROcodone/APAP 10-325MG 1 EACH TAB PO PRN (15:39)
[2016-10-18] MEDS: CLINDAMYCIN 900 MG in DEXTROSE 5% IN WATER 50 ML IVPB SCH ×4 (16:45→22:17)
--- NOTE | 2016-10-18 18:13 | P.PN ---
Subjective This is a 56-year-old female with a known past medical history of recent left hip surgery with Dr. Moses and is currently on Coumadin for DVT prevention. She also has a history of hypertension, COPD, and DVT about 14 years ago. Patient presents to the hospital after a syncopal episode. Patient reports that she was having lunch with her brother was walking around in the kitchen and came back to her seat with severe chest pressure having shortness of breath and then she passed out. She has had previous syncopal episodes with unclear etiology. Patient's brother called been S patient was brought into the emergency room. EKG had shown evidence of a third-degree AV block. Her metoprolol has been placed on hold. Cardiology consulted. They're assessing patient for possible pacemaker placement tomorrow. Coumadin has been placed on hold. Patient is CTA of the chest which was negative for PE but did show some emphysematous changes and atelectasis. I was brought into reevaluate patient again after she got up to use the restroom she felt her left hip pop she was able to get back to bed. X-ray of the hip was done stat and it's just revealing postop changes. She was given a dose of IV Dilaudid. Patient denies any fevers chills or sweats. She is no longer having the chest pressure or shortness of breath. She denies any nausea or vomiting any bowel movement changes or urinary symptoms. on 10/15/2016 patient is feeling better she is in normal sinus rhythm, she is complaining of hip pain and difficulty walking otherwise no complaints On 10/16/2016 patient was seen and examined, she is feeling well she denies any complaints, she is in sinus tachycardia with heart rate 120-130, she was seen by Dr. Isaacs this morning and metoprolol was added to her regimen. She will be monitored for 1 more day in the hospital, cardiology is still evaluating to assess need for pacemaker. On 10/18/2016 patient is having episodes of tachycardia despite low dose of beta daniel patient was reevaluated by cardiology and is scheduled for dual- chamber pacemaker implantation today Objective - Vital Signs Vital signs: Vital Signs Temp 96.2 F L 10/18/16 16:00 Pulse 52 L 10/18/16 16:00 Resp 16 10/18/16 16:00 BP 150/73 10/18/16 16:00 Pulse Ox 98 10/18/16 12:20 Intake & Output 10/17/16 10/18/16 10/18/16 18:59 06:59 18:59 Intake Total 625 959 6434 Balance 567 734 1770 Weight 94.9 kg Intake: IV 504 Intake, IV Titration 300 Amount Clindamycin 900 mg In 100 Dextrose 5% in Water 50 ml @ 100 mls/hr IVPB Q6H [facility] Rx#:[id number] Sodium Chloride 0.9% 1, 200 000 ml As IV .STK-[facility] ONE Rx#:[id number] Oral 100 350 240 Other: Voiding Method Toilet Toilet Toilet # Voids 2 1 - Exam In general patient is alert and oriented 3 HEENT head normocephalic and atraumatic Neck is supple no JVD no goiter no lymphadenopathy Chest is clear to auscultation no wheezing Cardiac exam reveals regular heart sounds no murmurs Abdomen is soft nontender no organomegaly Extremity exam reveals no edema no cyanosis or clubbing - Labs CBC & Chem 7: 10/18/16 06:14 10/17/16 05:49 Labs: Abnormal Lab Results - Last 24 Hours (Table) 10/18/16 10/18/16 Range/Units 06:14 06:15 RBC 3.39 L (3.80-5.40) m/uL Hgb 9.8 L (11.4-16.0) gm/dL Hct 31.4 L (34.0-46.0) % POC Glucose (mg/dL) 140 H (75-99) mg/dL Assessment and Plan Plan: 1. Syncopal episode with previous syncopal episodes likely secondary to complete heart block. Initial EKG had shown a complete heart block in the emergency room. Troponins were negative 3 sets. Her metoprolol has been placed on hold. CT of the chest was negative for PE. Cardiology consulted they have ordered an echocardiogram. And they're evaluating her for possible pacemaker placement tomorrow. Thyroid level within normal range. Patient has evidence of ralph- tachycardia syndrome and is scheduled for dual-chamber pacemaker placement today 2. Recent left hip surgery on October [address] Moses. Patient on Coumadin for DVT prophylaxis. Coumadin on hold for pacemaker placement. Concerned about dislocating left hip. X-ray showing no evidence of dislocation. Patient did receive 1 dose of IV Dilaudid for pain control. 3. Anemia hemoglobin 9.1. We'll check iron studies and a B12 level. 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 Acute kidney injury creatinine 1.32 on admission now down to 1.08 after fluids. Continue to monitor 5. Recent UTI in which she was finishing up Bactrim at home. Patient no longer having urinary symptoms. Check urinalysis before restarting antibiotic 6. Essential hypertension 7. Hyperlipidemia continue Lipitor GI prophylaxis Pepcid and DVT prophylaxis on hold for pacemaker placement tomorrow
[2016-10-18] MEDS: ATORVASTATIN 10 MG TAB PO SCH (22:14)
[2016-10-19 06:33] LABS: Basophils % (A) 1 %; CH 28.9; CHCM 31.8; Eosinophils # (A) 0.2 k/uL (0-0.7); Eosinophils % (A) 3 %; HCT 28.2 % (34.0-46.0); HDW 3.58; HGB 8.9 gm/dL (11.4-16.0); Hypochromasia Moderate; Luc # (Auto) 0.15; Luc % (Auto) 3; Lymphocytes # (A) 1.9 k/uL (1.0-4.8); Lymphocytes % (A) 32 %; MCHC 31.7 g/dL (31.0-37.0); MCV 91.4 fL (80.0-100.0); Mean Platelet Volume 6.7; Monocytes # (A) 0.3 k/uL (0-1.0); Monocytes % (A) 6 %; Neutrophils # (A) 3.4 k/uL (1.3-7.7); Neutrophils % (A) 56 %; Poikilocytosis Slight; RBC 3.08 m/uL (3.80-5.40); RDW 14.5 % (11.5-15.5); WBC 6.1 k/uL (3.8-10.6); WBC (Perox) 6.21
[2016-10-19 06:39] LABS: ALT 29 U/L (9-52); AST 23 U/L (14-36); Alkaline Phosphatase 122 U/L (38-126); Anion Gap 7 mmol/L; Blood Urea Nitrogen 18 mg/dL (7-17); Calcium 8.7 mg/dL (8.4-10.2); Carbon Dioxide 27 mmol/L (22-30); Chloride 104 mmol/L (98-107); Glucose 98 mg/dL (74-99); Non-African American GFR(MDRD) 58 (>60 ml/min/1.73 sqM); Sodium 138 mmol/L (137-145); Total Bilirubin 0.5 mg/dL (0.2-1.3)
[2016-10-19] MEDS: CLINDAMYCIN 900 MG in DEXTROSE 5% IN WATER 50 ML IVPB SCH ×4 (07:00→11:30)
--- NOTE | 2016-10-19 07:21 | XR ---
EXAMINATION TYPE: XR chest 2V DATE OF EXAM: 10/19/2016 COMPARISON: Prior chest x-ray 10/13/2016 HISTORY: Post pacemaker insertion TECHNIQUE: Frontal and lateral views of the chest are obtained. FINDINGS: There is no focal air space opacity, pleural effusion, or pneumothorax seen. The cardiac silhouette size is within normal limits. Pacemaker has been placed in the interval, generator in the left pectoral region, leads in the right atrium and ventricle. The osseous structures are intact. IMPRESSION: No evident complication status post pacemaker placement
[2016-10-19] MEDS: IPRATROPIUM-ALBUTEROL 3 ML NEB INHALATION SCH ×2 (07:24→11:07)
--- NOTE | 2016-10-19 08:27 | P.PCN ---
Date of Procedure: 10/18/16 Preoperative Diagnosis: High degree AV block Postoperative Diagnosis: The same Procedure(s) Performed: Dual-chamber permanent pacemaker implantation Implants: Indications for Procedure: Operative Findings: Description of Procedure: HISTORY: This is a 56-year-old female with history of tachybradycardia syndrome with intermittent high degree AV block. Patient is advised to have permanent pacemaker implantation. CONSENT:I have discussed the risks, benefits and alternative therapies for the above-mentioned procedure and for both sedation/analgesia as well as necessary blood product administration, if indicated, as they pertain to this patient. The patient has indicated understanding and acceptance of the risks and procedures discussed. PROCEDURE: Patient was brought to the lab in a fasting state. Patient was prepped and draped in the usual fashion. Patient was given IV sedation with fentanyl and Versed. The skin below the left clavicle was infiltrated with lidocaine. An incision was made parallel to deltopectoral groove was deepened until the pectoral fascia was exposed. A pocket was created by blunt dissection and cautery. Axillary venography was performed to delineate the course of the axillary vein. 2 sticks were performed into extrathoracic portion of the axillary vein and 2 sheaths were advanced over the guidewires and left in subclavian vein. Conscious Sedation: Versed 1 mg Fentanyl 75 g Duration 69minutes LEADS: ATRIAL: This is manufactured by [employer]. Model number is [id number] and serial number is [id number] VENTRICULAR: This is manufactured by [employer]. Model number is 7742. Serial number is [id number] THE DEVICE:This Is manufactured by [employer]. Model number is L101 and the serial number is [id number] The ventricular lead is maneuvered l with help of a straight and curved stylets into the left ventricle apical region. Satisfactory position was obtained and threshold measurements were made. The atrial lead was then maneuvered into the right atrial appendage. And thresholds were obtained. THRESHOLDS: ATRIUM: . The minimum patient threshold was 0.7 V at a pulse width of 0.4 ms. The impedance is 6 and 34 ohms P-wave: 1.7 mV VENTRICLE: The minimum patient threshold was 0.4 at pulse width of 0.4 ms. The impedance is 766 ohms R-wave: 7.9 mV The leads and pulse generator remained in the pocket after it was washed with antibiotics. Pocket was closed in the usual fashion. The fascia was closed with 2-0 Prolene ,the subcutaneous tissue was closed with 3-0 Prolene and the skin was closed with 4-0 Prolene. PROGRAMMING: MODE: DDDR RATE: 60 to 1:30 OUTPUT: Atrium Ventricle FINAL IMPRESSION: #1. Axillary venography #2. Dual-chamber pacemaker implantation COMPLICATIONS: . None PLAN: . Patient will be continued on Prophylactic antibiotics. Chest x-ray in the morning. If stable. Could be discharged home within next 24-48 hours.
[2016-10-19] MEDS: HYDROcodone/APAP 10-325MG 1 EACH TAB PO PRN (09:25)
[2016-10-19] MEDS: ASPIRIN 81 MG CHEW PO SCH (09:25)
[2016-10-19] MEDS: CYCLOBENZAPRINE 5 MG TAB PO SCH (09:25)
[2016-10-19] MEDS: FAMOTIDINE 20 MG TAB PO SCH (09:26)
[2016-10-19] MEDS: FUROSEMIDE 20 MG TAB PO SCH (09:26)
[2016-10-19] MEDS: DULoxetine HCL 60 MG CAPSULE.DR PO SCH (09:26)
[2016-10-19] MEDS: MELOXICAM 7.5 MG TAB PO SCH (09:27)
[2016-10-19] MEDS: LISINOPRIL 5 MG TAB PO SCH (09:27)
[2016-10-19] MEDS: METOPROLOL TARTRATE 12.5 MG TAB PO SCH (09:28)
[2016-10-19 11:13] VITALS: TEMP 98.3
[2016-10-19] MEDS: MORPHINE SULFATE ER 30 MG TABLET PO SCH (11:29)
[2016-10-19] MEDS: hydrOXYzine PAMOATE 25 MG CAP PO SCH (11:30)
[2016-10-19] MEDS: SODIUM CHLORIDE 0.9% 1,000 ML IV SCH (11:37)
[2016-10-19] MEDS: MULTIVITAMINS, THERA 1 EACH TAB PO SCH (11:38)
--- NOTE | 2016-10-19 12:00 | P.PN ---
Subjective Principal diagnosis: Symptomatic bradycardia This is a pleasant 56-year-old female patient with known hypertension was receiving Toprol-XL as an outpatient was admitted to the hospital with syncope. She was found to have severe bradycardia with the initial EKG showed advanced AV block. She underwent an echocardiogram which showed normal LV function. The patient underwent permanent pacemaker implantation yesterday. She underwent a chest x-ray today which showed that the leads are in place without any evidence of pneumothorax. From a cardiovascular standpoint of view she can be discharged home. Objective - Vital Signs Vital signs: Vital Signs Temp 98.3 F 10/19/16 08:00 Pulse 81 10/19/16 08:00 Resp 18 10/19/16 08:00 BP 109/72 10/19/16 08:00 Pulse Ox 93 L 10/19/16 08:00 Intake & Output 10/18/16 10/19/16 10/19/16 18:59 06:59 18:59 Intake Total 1044 160 Output Total 250 Balance 1044 -90 Weight 96.6 kg Intake: IV 504 160 Sodium Chloride 0.9% 1, 160 000 ml @ 20 mls/hr IV . Q24H [facility] Rx#:[id number] Intake, IV Titration 300 Amount Clindamycin 900 mg In 100 Dextrose 5% in Water 50 ml @ 100 mls/hr IVPB Q6H [facility] Rx#:[id number] Sodium Chloride 0.9% 1, 200 000 ml As IV .STK-[facility] Rx#:[id number] Oral 240 Output: Urine 250 Other: Voiding Method Toilet Toilet Toilet - Constitutional General appearance: Present: no acute distress - Respiratory Respiratory: bilateral: CTA - Cardiovascular Rhythm: regular Heart sounds: normal: S1, S2 - Labs CBC & Chem 7: 10/19/16 05:50 10/19/16 05:50 Labs: Abnormal Lab Results - Last 24 Hours (Table) 10/19/16 10/19/16 Range/Units 05:50 05:50 RBC 3.08 L (3.80-5.40) m/uL Hgb 8.9 L (11.4-16.0) gm/dL Hct 28.2 L (34.0-46.0) % BUN 18 H (7-17) mg/dL Total Protein 6.0 L (6.3-8.2) g/dL Albumin 3.3 L (3.5-5.0) g/dL Assessment and Plan Plan: This is a pleasant 56-year-old female patient was admitted to the hospital with tachybradycardia syndrome and underwent permanent pacemaker implantation. From the cardiovascular standpoint of view, she can be discharged home.
[2016-10-19 13:00] VITALS: BP 98/47; PULSE 79; RESP 16
--- NOTE | 2016-10-19 13:27 | P.DS ---
Providers Date of admission: 10/13/16 15:21 Expected date of discharge: 10/19/16 Attending physician: Srinivasan Gastelum Consults: 10/13/16 15:17 Consult Physician Urgent Consulting Provider: [facility] Reason/Comments: Third-degree AV block Do you want consulting provider notified?: Yes Primary care physician: Srinivasan Gastelum [facility] Course: Diagnoses on discharge: #1 syncopal episode on presentation #2 bradycardia tachycardia syndrome requiring pacemaker placement #3 underlying history of hypertension #4 underlying history of hyperlipidemia #5 recently left hip surgery on October 04 patient was maintained on Coumadin for DVT prophylaxis #6 anemia #7 acute kidney injury was creatinine up to 1.3-1 presentation resolved #8 recent urinary tract infection Hospital course This is a 56-year-old female with a known past medical history of recent left hip surgery with Dr. Moses and is currently on Coumadin for DVT prevention. She also has a history of hypertension, COPD, and DVT about 14 years ago. Patient presents to the hospital after a syncopal episode. Patient reports that she was having lunch with her brother was walking around in the kitchen and came back to her seat with severe chest pressure having shortness of breath and then she passed out. She has had previous syncopal episodes with unclear etiology. Patient's brother called been S patient was brought into the emergency room. EKG had shown evidence of a third-degree AV block. Her metoprolol has been placed on hold. Cardiology consulted. They're assessing patient for possible pacemaker placement tomorrow. Coumadin has been placed on hold. Patient is CTA of the chest which was negative for PE but did show some emphysematous changes and atelectasis. I was brought into reevaluate patient again after she got up to use the restroom she felt her left hip pop she was able to get back to bed. X-ray of the hip was done stat and it's just revealing postop changes. She was given a dose of IV Dilaudid. Patient denies any fevers chills or sweats. She is no longer having the chest pressure or shortness of breath. She denies any nausea or vomiting any bowel movement changes or urinary symptoms. Patient was admitted to telemetry floor she was evaluated by cardiology initially beta daniel was discontinued due to significant bradycardia however patient developed tachycardia she was started on a low-dose beta daniel metoprolol tartrate 12.5 mg twice daily she continued to have significant tachycardia she was reevaluated by cardiology and decision was made to proceed with pacemaker placement due to bradycardia tachycardia syndrome. She underwent pacemaker placement on 10/18/2016 without any complication she was monitored for 24 hours she was stable she was discharged home on 10/19/2016 Will be followed in our office within one week for further evaluation Plan - Discharge Summary New Discharge Prescriptions: New Acetaminophen Tab [Tylenol] 650 mg PO Q6HR PRN tab PRN Reason: Mild Pain Metoprolol Tartrate [Lopressor] 12.5 mg PO BID tab Zolpidem [Ambien] 5 mg PO HS PRN tab PRN Reason: Insomnia Continue Furosemide [Lasix] 20 mg PO BID Morphine Sulfate ER [Ms Contin] 30 mg PO TID Atorvastatin [Lipitor] 10 mg PO HS Multivit-Min/FA/Lycopen/Lutein [Centrum Silver Tablet] 1 tab PO DAILY Aspirin [Adult Low Dose Aspirin EC] 81 mg PO DAILY DULoxetine HCL [Cymbalta] 60 mg PO DAILY Albuterol Inhaler [Ventolin Hfa Inhaler] 1 - 2 puff INHALATION Q6HR PRN PRN Reason: Shortness Of Breath Or Wheezing diphenhydrAMINE [Benadryl] 25 mg PO QID PRN PRN Reason: Allergy Symptoms Hydrocodone/Acetaminophen [Benzonia 10-325] 1 tab PO Q6H PRN PRN Reason: Pain hydrOXYzine PAMOATE [Vistaril] 25 mg PO QID Meloxicam [Mobic] 7.5 mg PO BID Lisinopril [Prinivil] 5 mg PO DAILY Cyclobenzaprine [Flexeril] 5 mg PO TID Warfarin [Coumadin] 5 mg PO PC-SUPPER Umeclidinium Brm/Vilanterol Tr [Anoro Ellipta 62.5-25 Mcg INH] 1 puff INHALATION DAILY Discontinued Metoprolol Succinate [Toprol XL] 25 mg PO BID Discharge Medication List Albuterol Inhaler [Ventolin Hfa Inhaler] 1 - 2 puff INHALATION Q6HR PRN [History] Aspirin [Adult Low Dose Aspirin EC] 81 mg PO DAILY 06/06/16 [History] Atorvastatin [Lipitor] 10 mg PO HS 06/06/16 [History] DULoxetine HCL [Cymbalta] 60 mg PO DAILY 06/06/16 [History] Furosemide [Lasix] 20 mg PO BID 06/06/16 [History] Morphine Sulfate ER [Ms Contin] 30 mg PO TID 06/06/16 [History] Multivit-Min/FA/Lycopen/Lutein [Centrum Silver Tablet] 1 tab PO DAILY 06/06/16 [ History] Cyclobenzaprine [Flexeril] 5 mg PO TID 10/13/16 [History] Hydrocodone/Acetaminophen [Benzonia 10-325] 1 tab PO Q6H PRN 10/13/16 [History] Lisinopril [Prinivil] 5 mg PO DAILY 10/13/16 [History] Meloxicam [Mobic] 7.5 mg PO BID 10/13/16 [History] Warfarin [Coumadin] 5 mg PO PC-SUPPER 10/13/16 [History] diphenhydrAMINE [Benadryl] 25 mg PO QID PRN 10/13/16 [History] hydrOXYzine PAMOATE [Vistaril] 25 mg PO QID 10/13/16 [History] Umeclidinium Brm/Vilanterol Tr [Anoro Ellipta 62.5-25 Mcg INH] 1 puff INHALATION DAILY 10/15/16 [History] Acetaminophen Tab [Tylenol] 650 mg PO Q6HR PRN tab 10/19/16 [Rx] Metoprolol Tartrate [Lopressor] 12.5 mg PO BID tab 10/19/16 [Rx] Zolpidem [Ambien] 5 mg PO HS PRN tab 10/19/16 [Rx] Follow up Appointment(s)/Referral(s): Sylvester Moses MD [REFERRING] - 10/20/16 3:00 pm Nonstaff,Physician [REFERRING] - 1-2 days Srinivasan Gastelum MD [Primary Care Provider] - 1 Week Patient Instructions/Handouts: Pacemaker (DC), Revision Total Joint Arthroplasty (DC), Precautions after Total Joint Replacement Surgery (DC) Activity/Diet/Wound Care/Special Instructions: Home Care - [facility] - [phone] Coumadin diet PT/INR follow up with Dr. Moses
[2016-10-19] MEDS ORDERED: CEPHALEXIN 500 MG CAP PO SCH (16:00)
== END 2016-10-19 14:45 | disposition home health service (06) | DRG 243 ==
LOC: EC 14:00 → 6SEL 15:21
PROVIDERS: ADMIT Internal Medicine; ATTEND Internal Medicine
PROC: 02H63JZ Insertion of Pacemaker Lead into Right Atrium, Percutaneous Approach (ICD-10-PCS; 2016-10-18)
PROC: 02HK3JZ Insertion of Pacemaker Lead into Right Ventricle, Percutaneous Approach (ICD-10-PCS; 2016-10-18)
PROC: B51NYZA Fluoroscopy of Left Upper Extremity Veins using Other Contrast, Guidance (ICD-10-PCS; 2016-10-18)
PROC: 0JH606Z Insertion of Pacemaker, Dual Chamber into Chest Subcutaneous Tissue and Fascia, Open Approach (ICD-10-PCS; principal; 2016-10-18 07:20)
DX: I44.2 Atrioventricular block, complete (principal); N17.9 Acute kidney failure, unspecified; J98.11 Atelectasis; I11.9 Hypertensive heart disease without heart failure; I49.5 Sick sinus syndrome; D64.9 Anemia, unspecified; M25.552 Pain in left hip; J44.9 Chronic obstructive pulmonary disease, unspecified; E78.5 Hyperlipidemia, unspecified; M19.91 Primary osteoarthritis, unspecified site; F32.9 Major depressive disorder, single episode, unspecified; F41.9 Anxiety disorder, unspecified; I83.90 Asymptomatic varicose veins of unspecified lower extremity; G89.29 Other chronic pain; M54.9 Dorsalgia, unspecified; Z79.82 Long term (current) use of aspirin; Z79.891 Long term (current) use of opiate analgesic; Z79.01 Long term (current) use of anticoagulants; Z79.899 Other long term (current) drug therapy; Z87.440 Personal history of urinary (tract) infections; Z86.718 Personal history of other venous thrombosis and embolism; Z96.642 Presence of left artificial hip joint; Z90.49 Acquired absence of other specified parts of digestive tract; Z87.891 Personal history of nicotine dependence; Z88.0 Allergy status to penicillin; Z91.048 Other nonmedicinal substance allergy status
CPT/HCPCS: 36415; 71020; 71275; 73502; 80048; 80053; 81003; 82550; 82553; 82607; 82728; 83540; 83550; 83735; 83880; 84443; 84484; 85025; 85379; 85610; 85730; 93005; 93306; 94640; 94760; 96374; 99291

== ENCOUNTER → 2017-11-15 | Outpatient (CLI) | payer MEDICARE ==
--- NOTE | 2017-11-15 12:37 | XR ---
Lumbar spine HISTORY: Spinal stenosis, trauma 3 views of the lumbar spine CT chest 10/13/2016 Patient is status post posterior lumbar fusion L2-L4. Transverse process L1 on the right shows a stab le appearance, is not branch service representative of an acute fracture. Paraspinal graft material is present, ther e is multilevel laminectomy change. There is a mild spinal curvature. Postop change noted to the left hip and the right upper quadrant there are surgical clips. Lumbar vertebral bodies show preserved height. Minimal anterolisthesis grade 1 L4-5. Loss of disc hei ght present at intervertebral levels. Vascular calcifications noted incidentally. IMPRESSION: No acute fracture or subluxation is suspected, correlate with postoperative exam for rekha messina as described.
== END | disposition home or self-care (01) ==
LOC: RADXRMAIN 12:06
DX: M48.062 Spinal stenosis, lumbar region with neurogenic claudication (principal)
CPT/HCPCS: 72100

== ENCOUNTER → 2018-01-18 | Outpatient (CLI) | payer MEDICARE, OTHER ==
--- NOTE | 2018-01-18 15:00 | CT ---
EXAMINATION TYPE: CT lumbar spine wo con DATE OF EXAM: 01/18/2018 2:06 PM COMPARISON: Radiographs of the lumbar spine dated 11/15/2017 HISTORY: Spinal stenosis CT DLP: 939 mGycm Automated exposure control for dose reduction was used. TECHNIQUE: Unenhanced CT of the lumbar spine was performed. Bone and soft tissue window settings are submitted as well as coronal and sagittal reconstructions. FINDINGS: There is a very mild levoscoliotic curvature of the lumbar spine. Postsurgical fixation of the L2-4 vertebral bodies is seen with removal of prior surgical hardware from L5-S1. Resection of th e posterior elements are seen from L2 through S1. There is very minimal (grade 1) anterolisthesis of 2 mm of L4 on L5. Multilevel degenerative endplate change is seen from L3 through S1. Small anterior osteophytes are present throughout the lumbar spine. Vertebral body heights are maintained. L1-L2: There is a broad-based disc bulge resulting in mild bilateral neural foraminal narrowing and a butting the ventral subarachnoid space without significant spinal canal stenosis. L2-L3: [place] artifact from metallic hardware limits evaluation. There is a broad-based disc bulge res ulting in mild right and moderate left neural foraminal narrowing. No spinal canal stenosis. L3-L4: [place] artifact from metallic hardware limits evaluation. There is a broad-based disc bulge res ulting in mild left neural foraminal narrowing and mild to moderate right neural foraminal narrowing as a posterior projecting osteophyte from the inferior endplate of L3 contributes to this finding. No spinal canal stenosis. L4-L5: [place] artifact from metallic hardware limits evaluation. There is slight disc uncovering from the minimal anterolisthesis. There is resultant mild bilateral narrowing from disc uncovering and a b road-based disc bulge. No spinal canal stenosis. L5-S1: [place] artifact from metallic hardware limits evaluation. Broad-based disc bulge is seen withou t spinal canal stenosis nor neural foraminal narrowing. Along the postsurgical site at the posterior epidural space beginning at L4 and extending through S1 there is a hypoattenuated ill-defined density. IMPRESSION: 1. Ill-defined density within the subcutaneous tissues and dorsal epidural space that could represent scar tissue/granulation tissue or epidural fibrosis extending from L4 through S1 at the postsurgical site. MRI with contrast could assess this finding. 2. Very minimal grade 1 anterolisthesis of L4 on L5 resulting in disc uncovering. Mild bilateral neur al foraminal narrowing is seen at this level. 3. Multilevel degenerative disc disease resulting in variable degrees of neural foraminal narrowing a s described above. No spinal canal stenosis.
== END | disposition home or self-care (01) ==
LOC: RADCTMAIN 13:44
DX: M99.73 Connective tissue and disc stenosis of intervertebral foramina of lumbar region (principal); M43.16 Spondylolisthesis, lumbar region; M51.36 Other intervertebral disc degeneration, lumbar region; R93.7 Abnormal findings on diagnostic imaging of other parts of musculoskeletal system; Z98.890 Other specified postprocedural states
CPT/HCPCS: 72131

== ENCOUNTER 2018-01-23 13:29 | Emergency (ER) | payer MEDICARE, OTHER ==
[2018-01-23 13:41] VITALS: RESP 18
[2018-01-23] MEDS ORDERED: SODIUM CHLORIDE 0.9% 1,000 ML IV STA (13:52)
[2018-01-23] MEDS ORDERED: ONDANSETRON 4 MG/2 ML VIAL IVP STA (13:53)
[2018-01-23] MEDS ORDERED: MORPHINE SULFATE 4 MG/ML SYRINGE IV STA (13:53)
[2018-01-23 14:32] LABS: Anisocytosis Slight; Basophils % (A) 0 %; Eosinophils # (A) 0.1 k/uL (0-0.7); Eosinophils % (A) 1 %; HCT 39.6 % (34.0-46.0); HGB 12.8 gm/dL (11.4-16.0); Lymphocytes # (A) 2.1 k/uL (1.0-4.8); Lymphocytes % (A) 29 %; MCHC 32.3 g/dL (31.0-37.0); Mean Platelet Volume 6.7; Monocytes # (A) 0.4 k/uL (0-1.0); Monocytes % (A) 5 %; Neutrophils # (A) 4.4 k/uL (1.3-7.7); Neutrophils % (A) 62 %; Platelet Count 213 k/uL (150-450); RDW 16.2 % (11.5-15.5); WBC 7.1 k/uL (3.8-10.6)
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
--- NOTE | 2018-01-23 14:52 | XR ---
EXAMINATION TYPE: XR thoracic spine complete DATE OF EXAM: 01/23/2018 CLINICAL HISTORY: Fall with mid back pain. TECHNIQUE: Frontal, lateral, and swimmer's view of thoracic spine are obtained. COMPARISON: None. FINDINGS: Thoracic spine show satisfactory alignment without evidence of acute fracture or malalignme nt. Minimal multilevel degenerative changes are seen of the thoracic spine Vertebral body heights and disc space heights are preserved. Visualized ribs are unremarkable. Cholecystectomy clips are note d as well as partial visualization of a dual lead left-sided cardiac device and cardiomegaly. IMPRESSION: No acute fracture or dislocation is seen in the thoracic spine.
[2018-01-23 14:53] LABS: Creatine Kinase 42 U/L (30-135)
[2018-01-23 14:54] LABS: ALT 25 U/L (9-52); AST 22 U/L (14-36); Alkaline Phosphatase 155 U/L (38-126); Anion Gap 5 mmol/L; Blood Urea Nitrogen 25 mg/dL (7-17); Calcium 9.6 mg/dL (8.4-10.2); Carbon Dioxide 29 mmol/L (22-30); Chloride 105 mmol/L (98-107); Glucose 87 mg/dL (74-99); Potassium 3.9 mmol/L (3.5-5.1); Sodium 139 mmol/L (137-145); Total Bilirubin 0.5 mg/dL (0.2-1.3); Total Protein 6.9 g/dL (6.3-8.2)
--- NOTE | 2018-01-23 14:54 | XR ---
EXAMINATION TYPE: XR Hip RT and AP Pelvis DATE OF EXAM: 01/23/2018 COMPARISON: Left hip pain October 14, 2016 HISTORY: Trauma and pain TECHNIQUE: A single AP view of the pelvis is obtained. Two views of the right hip are obtained. FINDINGS: There is no acute fracture/dislocation evident in the pelvis. The hip and sacroiliac join ts appear symmetric and unremarkable. The overlying soft tissue appears unremarkable. Patient is sta tus post left hip arthroplasty. Postop changes are noted to the lower lumbar spine. Surgical clips ar e present in the right groin. Two views of right hip show no acute fracture or dislocation. No focal lytic or sclerotic lesion see n in the proximal right femur. The overlying soft tissue is unremarkable. IMPRESSION: There is no acute fracture or dislocation in the pelvis or right hip.
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
[2018-01-23 15:04] LABS: Creatine Kinase MB 0.4 ng/mL (0.0-2.4); Troponin I <0.012 ng/mL (0.000-0.034)
[2018-01-23] MEDS ORDERED: MORPHINE SULFATE 4 MG/ML SYRINGE IM STA (15:35)
[2018-01-23 15:44] VITALS: BP 152/103; PULSE 64; TEMP 97.2
== END 2018-01-23 15:42 | disposition home or self-care (01) ==
LOC: EC 13:29
DX: M54.5 Low back pain (principal); G89.29 Other chronic pain; M25.551 Pain in right hip; J44.9 Chronic obstructive pulmonary disease, unspecified; E78.5 Hyperlipidemia, unspecified; I10 Essential (primary) hypertension; M19.90 Unspecified osteoarthritis, unspecified site; F32.9 Major depressive disorder, single episode, unspecified; F41.9 Anxiety disorder, unspecified; Z79.82 Long term (current) use of aspirin; Z79.51 Long term (current) use of inhaled steroids; Z79.899 Other long term (current) drug therapy; Z88.0 Allergy status to penicillin; Z88.8 Allergy status to other drugs, medicaments and biological substances; Z95.0 Presence of cardiac pacemaker
CPT/HCPCS: 36415; 93005; 80053; 82550; 82553; 84484; 85025; 72072; 72100; 73502; 99285; 96374; 96375; 96361; 96372; J2270; J2405

== ENCOUNTER → 2018-04-25 | Outpatient (CLI) | payer MEDICARE, OTHER ==
--- NOTE | 2018-04-25 12:33 | CT ---
EXAMINATION TYPE: CT lumbar spine wo con DATE OF EXAM: 04/25/2018 12:11 PM COMPARISON: 01/18/2018 HISTORY: Low back pain with prior surgeries CT DLP: 974 mGycm Automated exposure control for dose reduction was used. TECHNIQUE: Unenhanced CT of the lumbar spine was performed. Bone and soft tissue window settings are submitted as well as coronal and sagittal reconstructions. FINDINGS: There is surgical removal of hardware at the L5-S1 vertebral levels. Pedicular screws and f ixation rods again traverse the L2-L4 vertebral bodies as seen on the prior of 01/18/2018. No new brennan tebral body height loss or new malalignment is noted. There remains 2 mm of anterolisthesis of L4 on L5. No significant scoliosis. Punctate nonobstructing right lower pole renal calculus is seen. No hyd ronephrosis. Gallbladder is surgically absent. Low-density right adrenal gland lipid rich adenoma is present. Susceptibility artifact from the metallic hardware creates spray artifact, limiting evaluati on. Surgical absence of the L2-S1 posterior elements decompressed the spinal canal. L1-L2: There is a left eccentric broad-based disc bulge progressed from the prior creating mild right and moderate left neural foraminal narrowing without spinal canal stenosis. L2-L3: [place] artifact from surgical fixation limits evaluation however a residual left eccentric broa d-based disc bulge is seen appearing degree of moderate left neural foraminal narrowing and mild righ t neural foraminal narrowing, similar to the prior. No spinal canal stenosis. L3-L4: [place] artifact from metallic hardware limits evaluation. Broad-based disc bulge again results in neural foraminal narrowing, slightly progressed from the prior now moderate bilaterally partially contributed to by a posterior projecting osteophyte from the inferior endplate of L3. No spinal canal stenosis. L4-L5: [place] artifact from metallic hardware limits evaluation. Calcified disc bulge and slight dis c uncovering remain resulting in moderate left and mild right neural foraminal narrowing without spin al canal stenosis, slightly progressed from the prior. L5-S1: Broad-based disc bulge results in mild bilateral neural foraminal narrowing without spinal can al stenosis. This is also slightly progressed in comparison to the prior. Again the evaluation for epidural fibrosis is limited and could be further evaluated with MRI with co ntrast. Ill-defined attenuation is seen within the epidural space and paraspinal muscles at the surgi laura sites. Generalized paraspinal muscular atrophy is noted. IMPRESSION: Slight progression of multilevel degenerative disc disease in comparison to the prior of 01/18/2018 r esulting in increasing degree of neural foraminal narrowing at multiple levels. Slight 2 mm anterolis thesis of L4 on L5 (grade 1) is unchanged from the prior. No new vertebral body height loss or new ma lalignment.
== END ==
LOC: RADCTMAIN 11:16
DX: M99.73 Connective tissue and disc stenosis of intervertebral foramina of lumbar region (principal); M43.16 Spondylolisthesis, lumbar region; M51.36 Other intervertebral disc degeneration, lumbar region
CPT/HCPCS: 72131

== ENCOUNTER 2018-04-26 17:17 | Observation (INO) | payer MEDICARE, OTHER ==
[2018-04-26] MEDS ORDERED: MORPHINE SULFATE 4 MG/ML SYRINGE IM STA ×2 (18:09→19:50)
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
--- NOTE | 2018-04-26 19:10 | XR ---
Left knee 3 views. History pain. Comparison none. FINDINGS: There is a left knee prosthesis. Components are in anatomic position. I see no fracture. IMPRESSION: No acute abnormality of the left knee.
--- NOTE | 2018-04-26 19:12 | XR ---
Left hip 2 views. History pain. Comparison none. FINDINGS: There is a left hip prosthesis. Components aren't entirely position. Sacroiliac joint appears normal. IMPRESSION: Left hip prosthesis. No fracture seen.
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
--- NOTE | 2018-04-26 20:36 | CT ---
EXAMINATION TYPE: CT lumbar spine wo con DATE OF EXAM: 04/26/2018 8:12 PM COMPARISON: Yesterday HISTORY: Low back pain. CT DLP: 1081.2 mGycm Automated exposure control for dose reduction was used. Unenhanced CT of the lumbar spine was performed. Bone and soft tissue window settings are submitted as well as coronal and sagittal reconstructions. Lumbar vertebra have fairly normal alignment. There is posterior fusion surgery with rods and screws at L2 and L3 and L4. There is previous posterior rods at L5 and S1. There is no compression fracture. There is degenerative disc space narrowing at L3-4 L4-5 and L5-S1. There is no lumbar paraspinal mas s. There is multilevel laminectomy defect. I see no pathologic fluid collection. There is no focal kenia ny destructive process. There is 2 mm calculus lower pole right kidney. There is no hydronephrosis. IMPRESSION: Previous surgery. Spondylotic changes. No fracture. No evidence of osteomyelitis. No change compared to exam yesterday.
--- NOTE | 2018-04-26 20:40 | CT ---
EXAMINATION TYPE: CT hip LT wo con DATE OF EXAM: 04/26/2018 COMPARISON: None HISTORY: Left hip pain. CT DLP: 566.6 mGycm Automated exposure control for dose reduction was used. FINDINGS: There is a left hip prosthesis. Components appear in anatomic position. I see no sign of any loosenin g. There is no evidence for fracture. The visualized left hemipelvis appears intact. Sacroiliac joint appears normal. There is no evidence of a soft tissue mass. There is no pathologic fluid collection. IMPRESSION: LEFT HIP PROSTHESIS. NO FRACTURE SEEN. PREVIOUS LOWER LUMBAR SPINE LAMINECTOMY SURGERY NOTED.
[2018-04-26] MEDS ORDERED: NALOXONE 0.4 MG/ML 1 ML VIAL IV PRN (21:11)
[2018-04-26] MEDS ORDERED: ONDANSETRON 4 MG/2 ML VIAL IVP PRN (21:11)
[2018-04-26] MEDS: SODIUM CHLORIDE 0.9% 1,000 ML IV SCH (22:46)
[2018-04-26] MEDS: KETOROLAC 30 MG/ML 1 ML VIAL IVP PRN (23:29)
[2018-04-26 23:36] LABS: Glucose,Whole Blood 109 mg/dL (75-99)
[2018-04-27] MEDS: MORPHINE SULFATE 4 MG/ML SYRINGE IV PRN ×4 (00:12→13:24)
[2018-04-27 08:51] LABS: Basophils % (A) 1 %; Eosinophils # (A) 0.1 k/uL (0-0.7); Eosinophils % (A) 2 %; HCT 41.9 % (34.0-46.0); HGB 13.2 gm/dL (11.4-16.0); Lymphocytes # (A) 2.6 k/uL (1.0-4.8); Lymphocytes % (A) 42 %; MCHC 31.4 g/dL (31.0-37.0); MCV 95.6 fL (80.0-100.0); Mean Platelet Volume 7.5; Monocytes # (A) 0.4 k/uL (0-1.0); Monocytes % (A) 7 %; Neutrophils # (A) 2.9 k/uL (1.3-7.7); Neutrophils % (A) 47 %; Platelet Count 190 k/uL (150-450); RBC 4.38 m/uL (3.80-5.40); RDW 14.6 % (11.5-15.5); WBC 6.2 k/uL (3.8-10.6)
[2018-04-27 09:28] LABS: ALT 36 U/L (9-52); AST 56 U/L (14-36); Albumin 3.6 g/dL (3.5-5.0); Alkaline Phosphatase 106 U/L (38-126); Anion Gap 7 mmol/L; Blood Urea Nitrogen 18 mg/dL (7-17); Carbon Dioxide 25 mmol/L (22-30); Chloride 112 mmol/L (98-107); Glucose 90 mg/dL (74-99); Sodium 144 mmol/L (137-145); Total Bilirubin 0.8 mg/dL (0.2-1.3); Total Protein 6.4 g/dL (6.3-8.2)
[2018-04-27 09:35] LABS: Potassium 4.3 mmol/L (3.5-5.1)
[2018-04-27] MEDS: KETOROLAC 30 MG/ML 1 ML VIAL IVP PRN ×2 (10:42→20:00)
[2018-04-27] MEDS ORDERED: oxyCODONE-APAP 10-325MG 1 EACH TAB PO PRN (10:50)
[2018-04-27] MEDS: ASPIRIN 325 MG TAB PO SCH (11:40)
[2018-04-27] MEDS: FUROSEMIDE 40 MG TAB PO SCH (11:40)
[2018-04-27] MEDS: ATORVASTATIN 10 MG TAB PO SCH (11:40)
[2018-04-27] MEDS: ALPRAZolam 1 MG TAB PO SCH ×3 (11:40→21:28)
[2018-04-27] MEDS: LEVOTHYROXINE 75 MCG TAB PO SCH (11:40)
[2018-04-27] MEDS: ALBUTEROL NEBULIZED 2.5 MG/3 ML INHALATION SCH ×4 (11:51→23:23)
[2018-04-27] MEDS: SODIUM CHLORIDE 0.9% 1,000 ML IV SCH (12:32)
[2018-04-27 12:58] VITALS: BMI 28.1
[2018-04-27] MEDS: tiZANidine 4 MG TAB PO SCH ×3 (13:23→23:47)
[2018-04-27] MEDS: DULoxetine HCL 60 MG CAPSULE.DR PO SCH (13:23)
[2018-04-27] MEDS: VENLAFAXINE HCL ER 75 MG CAP PO SCH ×2 (13:23→21:24)
[2018-04-27] MEDS: MECLIZINE 25 MG TAB PO SCH ×3 (13:24→21:25)
[2018-04-27] MEDS ORDERED: HYDROcodone/APAP 10-325MG 1 EACH TAB PO PRN (13:35)
--- NOTE | 2018-04-27 15:22 | HP ---
HISTORY AND PHYSICAL SUBJECTIVE: A 58-year-old white female apparently had a fall, twisted her foot in the bed, fell onto the floor. She has recently had back surgery from Dr. Brandon. She came to the hospital with severe chronic left hip pain, head contusion. Limited ambulation at this point due to left hip pain, right tibia bruising and right knee bruising and head contusion. Orthopedic consult is pending. As mentioned, recent surgery on her hip. She has history of COPD, nicotine addiction, depression, anxiety, hypertension, dyslipidemia. ALLERGIES: PENICILLIN, REMERON, SEROQUEL, GABAPENTIN, LYRICA. 14 POINT REVIEW OF SYSTEMS: Negative except for as mentioned in HPI. History of DVT, history of back surgery, cholecystectomy, joint replacement, orthopedic surgery. PAST SURGICAL HISTORY: Varicose veins, left knee arthroscopy, back surgery rods and screws. FAMILY HISTORY: Sister with cancer. Mother with cancer. CARDIOVASCULAR: S1-S2. LUNGS: Clear. GI: Soft. HEMATOLOGY: Negative Homans. MUSCULOSKELETAL: She has bruising on the left hip, tender to palpation left hip, she is able to lift her leg off the bed. CT of the brain is negative. She has a anterior hematoma on the front part of her scalp with no neurologic abnormality has been seen. ASSESSMENT: Fall, hip pain, left, head contusion, tibia contusion, COPD, nicotine addiction. Please see further orders. Await IV Solu-Medrol for inflammation. Orthopedic consult. 24 to 48 hours for discharge. MMODL / IJN: [id number] /
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
[2018-04-27] MEDS: methylPREDNISolone SOD SUCCI 40 MG/ML 1 ML VIAL IV SCH ×2 (17:31→23:48)
[2018-04-27] MEDS: HYDROcodone/APAP 10-325MG 1 EACH TAB PO PRN ×2 (17:32→21:22)
[2018-04-27] MEDS: FORMOTEROL FUMARATE 20 MCG/2 ML NEBU INHALATION SCH (19:39)
[2018-04-27] MEDS: IPRATROPIUM 0.5 MG/2.5 ML NEBU INHALATION SCH (19:39)
[2018-04-27] MEDS ORDERED: BUDESONIDE 0.5 MG/2 ML NEBU INHALATION SCH (20:00)
[2018-04-27] MEDS ORDERED: traZODone HCL 50 MG TAB PO SCH (21:00)
[2018-04-27 21:08] VITALS: RESP 16
[2018-04-27] MEDS: METOPROLOL SUCCINATE (ER) 50 MG TAB.ER.24H PO SCH (22:18)
[2018-04-28] MEDS: HYDROcodone/APAP 10-325MG 1 EACH TAB PO PRN ×2 (02:30→08:40)
[2018-04-28] MEDS: SODIUM CHLORIDE 0.9% 1,000 ML IV SCH (02:31)
[2018-04-28] MEDS: ALBUTEROL NEBULIZED 2.5 MG/3 ML INHALATION SCH ×3 (03:33→11:22)
[2018-04-28 04:45] VITALS: BP 137/87; TEMP 97.5
[2018-04-28] MEDS: LEVOTHYROXINE 75 MCG TAB PO SCH (06:25)
[2018-04-28] MEDS: tiZANidine 4 MG TAB PO SCH ×2 (06:25→12:40)
[2018-04-28] MEDS: ASPIRIN 325 MG TAB PO SCH (07:24)
[2018-04-28] MEDS: VENLAFAXINE HCL ER 75 MG CAP PO SCH (07:25)
[2018-04-28] MEDS: ALPRAZolam 1 MG TAB PO SCH (07:25)
[2018-04-28] MEDS: METOPROLOL SUCCINATE (ER) 50 MG TAB.ER.24H PO SCH (07:25)
[2018-04-28] MEDS: DULoxetine HCL 60 MG CAPSULE.DR PO SCH (07:25)
[2018-04-28] MEDS: MECLIZINE 25 MG TAB PO SCH (07:25)
[2018-04-28] MEDS: ATORVASTATIN 10 MG TAB PO SCH (07:25)
[2018-04-28] MEDS: methylPREDNISolone SOD SUCCI 40 MG/ML 1 ML VIAL IV SCH (07:26)
[2018-04-28] MEDS: FUROSEMIDE 40 MG TAB PO SCH (07:26)
[2018-04-28] MEDS: FORMOTEROL FUMARATE 20 MCG/2 ML NEBU INHALATION SCH (07:54)
[2018-04-28] MEDS: IPRATROPIUM 0.5 MG/2.5 ML NEBU INHALATION SCH ×2 (07:54→11:36)
[2018-04-28 08:16] VITALS: PULSE 64
[2018-04-28] MEDS ORDERED: MELOXICAM 7.5 MG TAB PO SCH (09:00)
== END 2018-04-28 13:36 | disposition home or self-care (01) ==
LOC: EC 17:17 → 3NMEDONC 21:11
PROVIDERS: ADMIT Family Medicine; ATTEND Family Medicine
DX: M25.552 Pain in left hip (principal); W18.09XA Striking against other object with subsequent fall, initial encounter; Y92.009 Unspecified place in unspecified non-institutional (private) residence as the place of occurrence of the external cause; Z96.642 Presence of left artificial hip joint; Z96.652 Presence of left artificial knee joint; J44.9 Chronic obstructive pulmonary disease, unspecified; M19.90 Unspecified osteoarthritis, unspecified site; E78.5 Hyperlipidemia, unspecified; F17.200 Nicotine dependence, unspecified, uncomplicated; G89.29 Other chronic pain; I11.9 Hypertensive heart disease without heart failure; S00.93XA Contusion of unspecified part of head, initial encounter; S80.01XA Contusion of right knee, initial encounter; S80.11XA Contusion of right lower leg, initial encounter; Z79.82 Long term (current) use of aspirin; Z79.890 Hormone replacement therapy; Z79.899 Other long term (current) drug therapy; Z87.01 Personal history of pneumonia (recurrent); Z86.718 Personal history of other venous thrombosis and embolism; Z80.1 Family history of malignant neoplasm of trachea, bronchus and lung; Z80.0 Family history of malignant neoplasm of digestive organs; Z83.3 Family history of diabetes mellitus
CPT/HCPCS: 96376 ×2; 96361; 96374; 96375; 96372; 99285; 94640 ×3; 93005; 80053; 85025; 73502; 73562; 72125; 72131; 70450; 73700; G0378 ×3; J2270 ×2; J2920 ×2; J1885 ×2

== ENCOUNTER 2018-06-07 06:29 | Day surgery (SDC) | payer MEDICARE, OTHER ==
[2018-06-01 16:03] VITALS: BMI 27.3
[~2018-06-07 06:29] MED LIST changes: +ALPRAZolam 0.25 MG TAB PO PRN; +ASPIRIN 325 MG TAB PO STA; +ATORVASTATIN 80 MG TAB PO STA; -DEXAMETHASONE SOD PHOSPHATE 10 MG/ML 1 ML VIAL IV ONE; -HYDROmorphone 1 MG/ML 1 ML SYRINGE IVP PRN; -LACTATED RINGERS 1,000 ML IV SCH; -MIDAZOLAM 2 MG/2 ML VIAL IV PRN; -ONDANSETRON 4 MG/2 ML VIAL IVP ONE; -Pre Op ABX Message 1 EACH MISC MISCELLANE ONE; -SCOPOLAMINE 1.5MG/72HR PATCH TRANSDERM ONE; +SODIUM CHLORIDE 0.9% 1,000 ML in EMPTY BAG 1 BAG IV ONE
[2018-06-07 07:00] VITALS: TEMP 98.2
[2018-06-07] MEDS ORDERED: fentaNYL (PF) 50 MCG/ML 2 ML AMP ONE (07:30)
[2018-06-07] MEDS ORDERED: VERAPAMIL 2.5 MG/ML 2 ML AMP ONE (07:30)
[2018-06-07] MEDS ORDERED: HEPARIN SODIUM 1,000 UN/ML (10ML VL) ONE (07:30)
[2018-06-07] MEDS ORDERED: LIDOCAINE 1% INJ 10MG/ML (20 ML MDV) ONE (07:30)
[2018-06-07] MEDS ORDERED: fentaNYL (PF) 50 MCG/ML 2 ML AMP IVP ONE (07:45)
[2018-06-07] MEDS ORDERED: MIDAZOLAM 2 MG/2 ML VIAL IVP ONE (07:45)
[2018-06-07] MEDS ORDERED: LIDOCAINE 1% INJ 10MG/ML (20 ML MDV) SQ ONE (07:46)
[2018-06-07] MEDS ORDERED: VERAPAMIL SYRINGE (5 MG/10 ML) INTRAARTER ONE (07:48)
[2018-06-07] MEDS ORDERED: HEPARIN SODIUM 1,000 UN/ML (10ML VL) IV ONE (07:51)
[2018-06-07] MEDS ORDERED: IOPAMIDOL-370 150ML BTL INJ ONE (07:57)
[2018-06-07] MEDS ORDERED: RX INFO: IV CONTRAST WAS GIVEN 1 EACH MISC MISCELLANE PRN (08:15)
[2018-06-07] MEDS ORDERED: SODIUM CHLORIDE 0.9% 1,000 ML IV SCH (08:15)
[2018-06-07] MEDS ORDERED: tiZANidine 4 MG TAB PO PRN (08:16)
[2018-06-07] MEDS ORDERED: ALBUTEROL NEBULIZED 2.5 MG/3 ML INHALATION PRN (08:16)
--- NOTE | 2018-06-07 08:30 | CC ---
CARDIAC CATHETERIZATION REPORT Mrs. Saldaña is 58-year-old female with a history of hypertension, hyperlipidemia, permanent pacemaker implantation, who has been complaining of chest discomfort. In view of that, she underwent myocardial perfusion imaging that revealed inferior wall ischemia. In view of that, recommendation was made regarding cardiac catheterization. The procedure as well as the risks and the complications were discussed with the patient who is in full understanding and agreement. PROCEDURE: Patient was brought to the equipment operator/laborer in a fasting semi-sedated state after receiving fentanyl and Benadryl and achieving moderate conscious sedated state. Using Xylocaine anesthesia in the Seldinger technique, a 6-Beninese sheath was introduced in the right radial artery. Selective right and left coronary angiography was performed with 5- Beninese 3.5 bend right and left Matias catheters. Multiple views of the coronary artery including hemiaxial views obtained. Following that 5-Beninese tight pigtail catheter was introduced left ventricle and a 30-degree CHOWDHURY view of the left ventricle was obtained. Following that, catheter and sheath were removed. Hemostasis was obtained with deployment of a TR band. There was no immediate complication. Patient was returned to her room in stable condition. Of note, the patient received 4000 units of intravenous heparin as well as intra-arterial verapamil. FINDINGS: LEFT MAIN: This is a short size vessel bifurcating in left circumflex and left anterior descending artery. Left main coronary artery has no evidence of high-grade stenosis. LEFT ANTERIOR DESCENDING ARTERY: This is a vessel tapers down distal third, giving rise to small diagonal branch. The left anterior descending artery and its branches have no evidence of obstructive coronary artery disease. LEFT CIRCUMFLEX: This is a nondominant vessel, large in caliber giving rise to 4 obtuse marginal branches. The left circumflex and its branches have no evidence of obstructive coronary artery disease. RIGHT CORONARY ARTERY: This is a dominant vessel giving rise to a right PDA distally and small PLV. The right coronary artery as well as branches have no evidence of obstructive coronary artery disease. LEFT VENTRICULOGRAM: Left ventriculogram was performed in 30-degree CHOWDHURY view and revealed normal left ventricular size and systolic function. HEMODYNAMICS: There was no gradient across the aortic valve. The left ventricular end- diastolic pressure was 16 to 20 mmHg. CONCLUSION: 1. Normal coronary arteries. 2. Normal left ventricular size and systolic function. RECOMMENDATION: In view of finding anatomy, I recommend continue medical therapy with aggressive coronary risk modifications that have been initiated. Those findings and recommendation were discussed with the patient and her family and they are in full understanding and agreement. Duration of procedure is 15 minutes. MMKASEYL / IJN: [id number] /
[2018-06-07] MEDS ORDERED: METOPROLOL TARTRATE 50 MG TAB PO SCH (09:00)
[2018-06-07] MEDS ORDERED: ASPIRIN 325 MG TAB PO SCH (09:00)
[2018-06-07] MEDS ORDERED: MECLIZINE 25 MG TAB PO SCH (09:00)
[2018-06-07] MEDS ORDERED: DULoxetine HCL 60 MG CAPSULE.DR PO SCH (09:00)
[2018-06-07] MEDS ORDERED: LEVOFLOXACIN 500 MG TAB PO SCH (09:00)
[2018-06-07] MEDS ORDERED: LEVOTHYROXINE 75 MCG TAB PO SCH (09:00)
[2018-06-07] MEDS ORDERED: VENLAFAXINE HCL ER 75 MG CAP PO SCH (09:00)
[2018-06-07] MEDS ORDERED: NON-FORMULARY DRUG (Celecoxib 200 MG) PO SCH (09:00)
[2018-06-07 13:33] VITALS: BP 124/71; PULSE 63; RESP 16
[2018-06-07] MEDS ORDERED: ATORVASTATIN 10 MG TAB PO SCH (21:00)
[2018-06-07] MEDS ORDERED: ALPRAZolam 1 MG TAB PO SCH (21:00)
[2018-06-07] MEDS ORDERED: NON-FORMULARY DRUG (Trazodone Hcl [Trazodone Hcl] 150 MG) PO SCH (21:00)
[2018-06-08] MEDS ORDERED: NON-FORMULARY DRUG (Umeclidinium Brm/Vilanterol Tr [Anoro Ellipta 62.5-25 Mcg Inh] 1 PUFF) INHALATION SCH (08:00)
== END 2018-06-07 13:10 | disposition home or self-care (01) ==
LOC: CATHCVL 06:29
PROVIDERS: ATTEND Internal Medicine Interventional Cardiology
DX: R94.39 Abnormal result of other cardiovascular function study (principal); I10 Essential (primary) hypertension; R06.02 Shortness of breath; E78.2 Mixed hyperlipidemia; Z95.0 Presence of cardiac pacemaker; Z79.51 Long term (current) use of inhaled steroids; Z79.899 Other long term (current) drug therapy; Z79.890 Hormone replacement therapy; Z87.891 Personal history of nicotine dependence; Z82.49 Family history of ischemic heart disease and other diseases of the circulatory system; I73.9 Peripheral vascular disease, unspecified; Z79.891 Long term (current) use of opiate analgesic
CPT/HCPCS: 93458; C1894; C1769; J2250; J2001; J3010; J1644; Q9967

== ENCOUNTER → 2018-09-19 | Outpatient (CLI) | payer MEDICARE, OTHER ==
--- NOTE | 2018-09-19 12:48 | CT ---
EXAMINATION TYPE: CT lumbar spine wo con DATE OF EXAM: 09/19/2018 COMPARISON: 04/26/2018 HISTORY: Lumbar spondylosis CT DLP: [address] of the lumbar spine was performed. Bone and soft tissue window settings are submitted as well as coronal and sagittal reconstructions. L1-L2: Normal disc space height. No disc herniation protrusion or central stenosis. No facet joint arthropathy. No evidence for foraminal encroachment. L2-L3: Decompressive laminectomy change. Pedicular screws in place. Normal alignment. No evidence for recurrent or residual disease. L3-L4: Decompressive laminectomy change. Pedicular screws in place. Normal alignment. No evidence for recurrent or residual disease. Vacuum disc changes identified. L4-L5: Decompressive laminectomy change. Pedicular screws in place. There is grade 1 anterolisthesis L4 and L5 measuring 3.5 mm unchanged from prior study. No evidence for recurrent or residual disease. L5-S1: Decompressive laminectomy changes. Prior screws have been removed. No evidence for recurrent o r residual disease. Alignment is anatomic. Degenerative disc space narrowing. No paraspinal masses are identified. Lumbar segments are free of fracture. IMPRESSION: 1. Stable examination of the lumbar spine with extensive postlaminectomy changes seen. Grade 1 gavin listhesis L4 and L5 as noted.
== END | disposition home or self-care (01) ==
LOC: RADCTMAIN 11:17
DX: M43.16 Spondylolisthesis, lumbar region (principal); Z98.890 Other specified postprocedural states
CPT/HCPCS: 72131

== ENCOUNTER → 2019-12-18 | Outpatient (CLI) | payer MEDICARE, OTHER ==
--- NOTE | 2019-12-18 16:01 | CT ---
EXAMINATION TYPE: CT lumbar spine wo con DATE OF EXAM: 12/18/2019 COMPARISON: 09/19/2018 HISTORY: Low back pain. CT DLP: [address] of the lumbar spine was performed. Bone and soft tissue window settings are submitted as well as coronal and sagittal reconstructions. L1-L2: Normal disc space height. No disc herniation protrusion or central stenosis. No facet joint arthropathy. No evidence for foraminal encroachment. L2-L3: Decompressive laminectomy change. Pedicular screws in place. Normal alignment. No evidence for recurrent or residual disease. L3-L4: Decompressive laminectomy change. Pedicular screws in place. Normal alignment. No evidence for recurrent or residual disease. Vacuum disc changes identified. L4-L5: Decompressive laminectomy change. Pedicular screws in place. There is grade 1 anterolisthesis L4 and L5 measuring 3.5 mm unchanged from prior study. No evidence for recurrent or residual disease. L5-S1: Decompressive laminectomy changes. Prior screws have been removed. No evidence for recurrent o r residual disease. Alignment is anatomic. Degenerative disc space narrowing. No paraspinal masses are identified. Lumbar segments are free if fracture. IMPRESSION: 1. Stable examination of the lumbar spine with extensive postlaminectomy changes seen. Grade 1 anter olisthesis L4 and L5 as noted.
== END | disposition home or self-care (01) ==
LOC: RADCTMAIN 15:07
DX: M43.16 Spondylolisthesis, lumbar region (principal); Z98.890 Other specified postprocedural states
CPT/HCPCS: 72131

== ENCOUNTER 2020-03-27 08:11 | Day surgery (SDC) | payer MEDICARE, OTHER ==
[~2020-03-27 08:11] MED LIST changes: -ALPRAZolam 0.25 MG TAB PO PRN; -ASPIRIN 325 MG TAB PO STA; -ATORVASTATIN 80 MG TAB PO STA; +PREMYELOGRAM MEDICATION REVIEW 1 EACH MISC PO ONE; -SODIUM CHLORIDE 0.9% 1,000 ML in EMPTY BAG 1 BAG IV ONE
[2020-03-27 08:54] VITALS: TEMP 98.2
[2020-03-27] MEDS ORDERED: diazePAM 5 MG TAB PO STA (09:00)
--- NOTE | 2020-03-27 10:37 | CT ---
EXAMINATION TYPE: CT lumbar spine w con DATE OF EXAM: 03/27/2020 COMPARISON: CT lumbar spine December 18, 2019 HISTORY: Spinal stenosis CT DLP: 1053.90 mGycm Automated exposure control for dose reduction was used. CONTRAST: CT scan of the lumbar is performed without IV contrast. Enhanced CT of the lumbar spine was performed after intrathecal injection of Isovue-300. Bone and so ft tissue window settings are submitted as well as coronal and sagittal reconstructions. There are 5 lumbar type vertebra redemonstrated. Persistent posterior interpedicular rods and screws transfix the L2-L4 levels bilaterally. Screw position stable and satisfactory. Multilevel laminectomy defects and spinous process resection in the mid to lower lumbar spine redemonstrated. Bilateral het erotopic ossification laterally again seen. Persistent moderate disc space narrowing L3-L4 and L4-L5 levels. Persistent slight grade 1 anterolisthesis L5 on S1. There is slight grade 1 retrolisthesis L1 on L2 with mild to moderate disc space narrowing and vacuum disc phenomenon along with endplate scle rosis all redemonstrated. Successful intrathecal injection of contrast noted. On coronal images are w ell-corticated lucencies consistent with old fusion hardware in the L5 and S1 level bilaterally. Axial images at T12-L1 level demonstrate mild facet degenerative changes. Spinal canal is preserved. Axial images at L1-L2 level with spondylolisthesis with moderate broad-based posterior disc protrusio n effacing the anterior thecal sac and [id number]-jb-jalgpkbn facet degenerative changes bilaterally effaci ng posterior lateral thecal sac seen best on axial image 26. Moderate bilateral anterior inferior indira ral foraminal narrowing. Slightly suboptimal evaluation due to streak artifact from metallic hardware . Axial images at L2-L3 and L3-L4 levels are degraded by artifact from metallic hardware, spinal canal is grossly observed with posterior decompression. Axial images at the L4-L5 level show preservation of the spinal canal with posterior decompression. M ild bilateral anterior inferior neural foraminal narrowing due to marginal spurring. Axial images at the L5-S1 level shows successful posterior decompression, spinal canal preserved. Mil d bilateral anterior inferior neural foraminal narrowing due to marginal spurring. Cholecystectomy clips. Mild extrahepatic biliary dilatation near cassandra hepatis measuring 13 to 14 mm coronal image 23. Moderate prominence of fecal material in the visualized left colon. Zdnn-bd-peawuwd e generalized paraspinal muscular atrophy posteriorly with involvement of the iliopsoas muscles left greater than right also redemonstrated. IMPRESSION: As above. Stable alignment. Extensive postsurgical changes. Successful posterior decompre ssion. Multilevel degenerative changes as detailed above. Most prominent spinal canal effacement of s tenosis now seen at L1-L2 level.
[2020-03-27 10:43] VITALS: RESP 16
--- NOTE | 2020-03-27 11:10 | FL ---
EXAMINATION TYPE: FL myelogram lumbosacral DATE OF EXAM: 03/27/2020 COMPARISON: CT lumbar spine December 18, 2019 HISTORY: Spinal stenosis. Low back pain. Findings: Fluoroscopic assisted myelogram. A total of 1.37 minutes fluoroscopic time utilized during procedure. 2 spot images saved. Informed consent was obtained and all the patient's questions were answered. Prior CT is reviewed. Po sterior intrapedicular rods and screws transfix L2-L4 levels. Overlying skin is cleansed with Betadin e. There are multiple laminectomy defects with spinous process resection. Lidocaine is used as anesth etic into the skin and deeper tissue. Spinal needle was introduced into the thecal sac under fluoroscopic guidance targeting L5 level and 1 0 mL's of Isovue 300m was injected. Needle was withdrawn. CT myelography is to follow. This report is dictated separately. Patient tolerated procedure well without any immediate complication. Vital signs monitored before dur ing and after procedure and were satisfactory. Patient kept in the hospital for short stay after the procedure and then discharged home in stable condition. Images saved show successful opacification of the lumbar spinal canal with poor visualization suspect ed stenosis at the L1-L2 level. Posterior interpedicular rods and screws transfixing L2-L4 levels. IMPRESSION: As above.
[2020-03-27 14:39] VITALS: BP 131/61; PULSE 60
== END 2020-03-27 13:40 | disposition home or self-care (01) ==
LOC: RADPROMAIN 08:11
DX: M48.062 Spinal stenosis, lumbar region with neurogenic claudication (principal); M47.896 Other spondylosis, lumbar region; Z98.1 Arthrodesis status
CPT/HCPCS: 62304; 72132; Q9967

== ENCOUNTER → 2020-05-14 | Outpatient (CLI) | payer MEDICARE, OTHER ==
--- NOTE | 2020-05-15 07:46 | XR ---
Lumbar spine HISTORY: Postlumbar fusion 2 views the lumbar spine correlated to CT lumbar spine 03/27/2020 There is been interval extension of the posterior fusion, patient is post posterior fusion at T12-L4. Intervertebral spacing block is been placed at L1-L2. There is anatomic alignment. Lumbar vertebral bodies show preserved height. Bone mineralization is reduced. Loss of disc height is present at inter vertebral levels. Postop change noted to the hip. Is multilevel laminectomy change. Some air-fluid le vels are present noted incidentally. No evident bowel distention. Pacemaker lead is noted incidentall y. Allograft material is noted along the paraspinal locations. Surgical clips present in the right up per quadrant. Patient is tilted towards the right on AP view. IMPRESSION: Neurosurgical follow-up.
== END ==
LOC: RADXRMAIN 13:45
DX: Z98.1 Arthrodesis status (principal)
CPT/HCPCS: 72100

== ENCOUNTER 2020-06-10 16:16 | Emergency (ER) | payer MEDICARE, OTHER ==
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
[2020-06-10 16:47] LABS: Basophils % (A) 1 %; Eosinophils # (A) 0.2 k/uL (0-0.7); Eosinophils % (A) 3 %; HCT 36.2 % (34.0-46.0); HGB 12.1 gm/dL (11.4-16.0); Lymphocytes # (A) 2.6 k/uL (1.0-4.8); Lymphocytes % (A) 36 %; MCH 28.2 pg (25.0-35.0); MCHC 33.5 g/dL (31.0-37.0); MCV 84.3 fL (80.0-100.0); Monocytes # (A) 0.4 k/uL (0-1.0); Monocytes % (A) 5 %; Neutrophils # (A) 3.8 k/uL (1.3-7.7); Neutrophils % (A) 53 %; Platelet Count 204 k/uL (150-450); RBC 4.29 m/uL (3.80-5.40); RDW 15.4 % (11.5-15.5); WBC 7.2 k/uL (3.8-10.6)
[2020-06-10 16:59] LABS: ALT 9 U/L (4-34); AST 28 U/L (14-36); African American GFR (CKD) >90 (>60 ml/min/1.73 sqM); Alkaline Phosphatase 113 U/L (38-126); Anion Gap 5 mmol/L; Blood Urea Nitrogen 20 mg/dL (7-17); Calcium 9.5 mg/dL (8.4-10.2); Carbon Dioxide 31 mmol/L (22-30); Chloride 101 mmol/L (98-107); Glucose 73 mg/dL (74-99); Magnesium 1.7 mg/dL (1.6-2.3); Non-African American GFR(CKD) 89 (>60 ml/min/1.73 sqM); Potassium 4.2 mmol/L (3.5-5.1); Sodium 137 mmol/L (137-145); Total Bilirubin 0.4 mg/dL (0.2-1.3); Total Protein 6.7 g/dL (6.3-8.2)
[2020-06-10 17:11] LABS: Partial Thromboplastin Time 23.5 sec (22.0-30.0); Prothrombin Time 10.5 sec (9.0-12.0)
[2020-06-10] MEDS ORDERED: MORPHINE SULFATE 4 MG/ML SYRINGE IVP STA (18:15)
[2020-06-10] MEDS ORDERED: NITROGLYCERIN SL TABS 0.4 MG TAB SUBLINGUAL PRN (20:28)
[2020-06-10 20:33] VITALS: BP 122/72; PULSE 74; RESP 20; TEMP 98.2
[2020-06-11] MEDS ORDERED: ASPIRIN 325 MG TAB PO SCH (09:00)
== END 2020-06-10 21:07 | disposition other institution (70) ==
LOC: EC 16:16 → UNDOADMOB 20:28 → 6NMEDSUR 20:28 → EC 21:07
DX: R07.9 Chest pain, unspecified (principal); J44.9 Chronic obstructive pulmonary disease, unspecified; I10 Essential (primary) hypertension; E78.5 Hyperlipidemia, unspecified; M19.90 Unspecified osteoarthritis, unspecified site; Z86.718 Personal history of other venous thrombosis and embolism; F41.9 Anxiety disorder, unspecified; F32.9 Major depressive disorder, single episode, unspecified; Z87.891 Personal history of nicotine dependence
CPT/HCPCS: 99285; 96374; 36415; 93005; 80053; 83735; 84484; 85025; 85610; 85730; J2270

== ENCOUNTER 2020-08-25 14:22 | Inpatient (IN) | payer MEDICARE, OTHER ==
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
[2020-08-25] MEDS ORDERED: NITROGLYCERIN SL TABS 0.4 MG TAB SUBLINGUAL PRN (14:59)
[2020-08-25] MEDS ORDERED: HEPARIN SOD,PORK IN 0.45% NACL 25,000 UNIT in 0.45% NACL 1 250ML.BAG IV SCH (15:00)
[2020-08-25 15:48] VITALS: RESP 18
[2020-08-25] MEDS: oxyCODONE-APAP 10-325MG 1 EACH TAB PO PRN ×2 (18:27→23:01)
[2020-08-25 19:17] LABS: Anisocytosis Slight; Basophils # (A) 0.1 k/uL (0-0.2); Basophils % (A) 1 %; Eosinophils # (A) 0.2 k/uL (0-0.7); Eosinophils % (A) 2 %; HCT 41.1 % (34.0-46.0); HGB 13.3 gm/dL (11.4-16.0); Lymphocytes # (A) 2.6 k/uL (1.0-4.8); Lymphocytes % (A) 23 %; MCH 27.1 pg (25.0-35.0); MCHC 32.4 g/dL (31.0-37.0); MCV 83.7 fL (80.0-100.0); Mean Platelet Volume 6.8; Monocytes # (A) 0.6 k/uL (0-1.0); Monocytes % (A) 5 %; Neutrophils # (A) 7.4 k/uL (1.3-7.7); Neutrophils % (A) 68 %; Platelet Count 304 k/uL (150-450); RBC 4.91 m/uL (3.80-5.40); RDW 16.7 % (11.5-15.5)
[2020-08-25] MEDS ORDERED: ATORVASTATIN 10 MG TAB PO SCH (21:00)
[2020-08-25] MEDS ORDERED: traZODone HCL 100 MG TAB PO SCH (21:00)
[2020-08-25] MEDS ORDERED: amLODIPine 5 MG TAB PO SCH (21:00)
[2020-08-25] MEDS: NITROGLYCERIN OINT 1 INCH/GM PACKET TOPICAL SCH (21:18)
[2020-08-25] MEDS: GABAPENTIN 300 MG CAP PO SCH (21:40)
[2020-08-25] MEDS: ZINC OXIDE 20% OINT 28.4 GM TUBE TOPICAL SCH (21:41)
[2020-08-25] MEDS: METOPROLOL SUCCINATE (ER) 50 MG TAB.ER.24H PO SCH (21:42)
[2020-08-25] MEDS: DICYCLOMINE 20 MG TAB PO SCH (21:42)
[2020-08-25] MEDS: ALPRAZolam 0.5 MG TAB PO PRN (21:42)
[2020-08-25] MEDS: busPIRone HCl 5 MG TAB PO SCH (21:42)
[2020-08-25] MEDS: DULoxetine HCL 60 MG CAPSULE.DR PO SCH (21:42)
[2020-08-25] MEDS: VENLAFAXINE HCL ER 150 MG CAP PO SCH (21:42)
[2020-08-25] MEDS: tiZANidine 4 MG TAB PO SCH (21:42)
[2020-08-25 22:16] LABS: ALT 45 U/L (4-34); AST 59 U/L (14-36); African American GFR (CKD) 83 (>60 ml/min/1.73 sqM); Albumin 4.4 g/dL (3.5-5.0); Albumin/Globulin Ratio 1.6; Alkaline Phosphatase 127 U/L (38-126); Anion Gap 6 mmol/L; Blood Urea Nitrogen 22 mg/dL (7-17); Calcium 9.5 mg/dL (8.4-10.2); Carbon Dioxide 29 mmol/L (22-30); Chloride 104 mmol/L (98-107); Globulin 2.8 g/dL; Glucose 99 mg/dL (74-99); Non-African American GFR(CKD) 72 (>60 ml/min/1.73 sqM); Potassium 4.5 mmol/L (3.5-5.1); Sodium 139 mmol/L (137-145); Total Bilirubin 0.5 mg/dL (0.2-1.3); Total Protein 7.2 g/dL (6.3-8.2)
[2020-08-25] MEDS ORDERED: HEPARIN SODIUM 1,000 UN/ML (10ML VL) IV PRN (22:46)
[2020-08-26] MEDS: NITROGLYCERIN OINT 1 INCH/GM PACKET TOPICAL SCH ×2 (00:14→06:00)
[2020-08-26] MEDS: oxyCODONE-APAP 10-325MG 1 EACH TAB PO PRN ×3 (04:01→12:40)
[2020-08-26] MEDS ORDERED: LEVOTHYROXINE 25 MCG TAB PO SCH (06:30)
[2020-08-26] MEDS ORDERED: PANTOPRAZOLE 40 MG TABLET PO SCH (07:30)
[2020-08-26 07:37] VITALS: BP 148/80; PULSE 64; TEMP 97.1
[2020-08-26] MEDS ORDERED: REGADENOSON 0.4 MG/5 ML SYRINGE IV PRN (08:40)
[2020-08-26] MEDS ORDERED: AMINOPHYLLINE 500 MG/20 ML VIAL IV PRN (08:40)
[2020-08-26] MEDS ORDERED: CAFFEINE CITRATE 60 MG/3 ML VIAL IV PRN (08:40)
[2020-08-26] MEDS: DULoxetine HCL 60 MG CAPSULE.DR PO SCH (08:42)
[2020-08-26] MEDS: DICYCLOMINE 20 MG TAB PO SCH ×2 (08:42→12:44)
[2020-08-26] MEDS: tiZANidine 4 MG TAB PO SCH (08:42)
[2020-08-26] MEDS: GABAPENTIN 300 MG CAP PO SCH (08:43)
[2020-08-26] MEDS: ZINC OXIDE 20% OINT 28.4 GM TUBE TOPICAL SCH (08:44)
[2020-08-26] MEDS: busPIRone HCl 5 MG TAB PO SCH (08:52)
[2020-08-26] MEDS: VENLAFAXINE HCL ER 150 MG CAP PO SCH (08:52)
[2020-08-26] MEDS ORDERED: LOSARTAN 50 MG TAB PO SCH (09:00)
[2020-08-26] MEDS ORDERED: ASPIRIN 325 MG TAB PO SCH (09:00)
[2020-08-26] MEDS ORDERED: hydroCHLOROthiazide 25 MG TAB PO SCH (09:00)
[2020-08-26] MEDS ORDERED: FUROSEMIDE 40 MG TAB PO SCH (09:00)
[2020-08-26 09:16] LABS: Basophils # (A) 0.05 X 10*3/uL (0.00-0.10); Basophils % (A) 0.7 %; Eosinophils # (A) 0.19 X 10*3/uL (0.04-0.35); Eosinophils % (A) 2.7 %; HCT 39.1 % (37.2-46.3); HGB 11.8 g/dL (12.0-15.0); Lymphocytes # (A) 2.29 X 10*3/uL (0.90-5.00); Lymphocytes % (A) 32.2 %; MCH 26.5 pg (27.0-32.0); MCHC 30.2 g/dL (32.0-37.0); MCV 87.7 fL (80.0-97.0); Mean Platelet Volume 9.6 fL (9.5-12.2); Monocytes # (A) 0.67 X 10*3/uL (0.20-1.00); Monocytes % (A) 9.4 %; Neutrophils # (A) 3.87 X 10*3/uL (1.80-7.70); Neutrophils % (A) 54.4 %; Platelet Count 214 X 10*3/uL (140-440); RBC 4.46 X 10*6/uL (4.10-5.20); RDW 17.5 % (11.5-14.5); WBC 7.11 X 10*3/uL (4.50-10.00)
[2020-08-26] MEDS: METOPROLOL SUCCINATE (ER) 50 MG TAB.ER.24H PO SCH (09:26)
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
[2020-08-26 11:59] VITALS: BMI 28.4
[2020-08-26] MEDS: ALPRAZolam 0.5 MG TAB PO PRN (12:42)
--- NOTE | 2020-08-26 13:07 | NM ---
EXAMINATION TYPE: NM stress lexiscan cardiolite DATE OF EXAM: 08/26/2020 COMPARISON: NONE HISTORY: Chest pain TECHNIQUE: After the intravenous administration of 9.6 mCi Tc 99m Sestamibi - Cardiolite resting SPE CT images acquired 45 minutes post injection. The patient received 0.4mg Lexiscan, 25.4 mCi Tc 99m Sestamibi - Stress images obtained [address] injection FINDINGS: Review of stress and rest SPECT images demonstrates decreased radio pharmaceutical uptake along the i nferior wall the left ventricle on stress and rest images, there is some improvement of radio pharmac eutical uptake towards the apex anteriorly on rest as compared to stress images and also along the in ferior wall towards the base of the heart on rest images as compared to stress images. Gated analysi s shows normal wall motion with an estimated left ventricular ejection fraction of 49 %. 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 A Yellow level critical message alert has been initiated for Tamara Medrano MD via the [employer] Critical Results System on 08/26/2020 1:05 PM. This message alert has been sent to Tamara Medrano MD via the preferences provided by the clinician for the receipt of Radiology Critical Findings. Message ID [id number].
--- NOTE | 2020-08-26 13:47 | P.DS ---
Providers Date of admission: 08/25/20 15:18 Expected date of discharge: 08/26/20 Attending physician: Tamara Medrano Consults: 08/25/20 14:59 Consult Physician Urgent Consulting Provider: [facility] Consult Reason/Comments: Unstable angina Do you want consulting provider notified?: Yes Primary care physician: Tamara Medrano Plan - Discharge Summary Discharge Rx Participant: No New Discharge Prescriptions: Continue DULoxetine HCL [Cymbalta] 60 mg PO BID Celecoxib [CeleBREX] 200 mg PO BID Atorvastatin [Lipitor] 10 mg PO HS oxyCODONE-APAP 10-325MG [Percocet 10-325 mg] 1 - 2 tab PO Q4-6H PRN PRN Reason: Pain busPIRone HCl [Buspar] 5 mg PO BID Furosemide [Lasix] 40 mg PO DAILY Pantoprazole Sodium [Protonix] 40 mg PO DAILY Metoprolol Succinate [Toprol XL] 50 mg PO DAILY Gabapentin 900 mg PO TID Venlafaxine HCl [Effexor XR] 150 mg PO BID traZODone HCL 300 mg PO HS tiZANidine [Zanaflex] 4 mg PO TID Levothyroxine Sodium 25 mcg PO DAILY hydroCHLOROthiazide 25 mg PO DAILY ALPRAZolam [Xanax] 0.5 mg PO BID PRN PRN Reason: Anxiety Losartan [Cozaar] 50 mg PO DAILY amLODIPine [Norvasc] 5 mg PO DAILY Dicyclomine [Bentyl] 20 mg PO QID Aspirin [[place] Aspirin EC] 81 mg PO DAILY Discharge Medication List DULoxetine HCL [Cymbalta] 60 mg PO BID 06/06/16 [History] Celecoxib [CeleBREX] 200 mg PO BID 01/23/18 [History] Atorvastatin [Lipitor] 10 mg PO HS 04/26/18 [History] oxyCODONE-APAP 10-325MG [Percocet 10-325 mg] 1 - 2 tab PO Q4-6H PRN 04/26/18 [History] Furosemide [Lasix] 40 mg PO DAILY 03/03/20 [History] Gabapentin 900 mg PO TID 03/03/20 [History] Metoprolol Succinate [Toprol XL] 50 mg PO DAILY 03/03/20 [History] Pantoprazole Sodium [Protonix] 40 mg PO DAILY 03/03/20 [History] Venlafaxine HCl [Effexor XR] 150 mg PO BID 03/03/20 [History] busPIRone HCl [Buspar] 5 mg PO BID 03/03/20 [History] Levothyroxine Sodium 25 mcg PO DAILY 06/10/20 [History] amLODIPine [Norvasc] 5 mg PO DAILY 06/10/20 [History] hydroCHLOROthiazide 25 mg PO DAILY 06/10/20 [History] tiZANidine [Zanaflex] 4 mg PO TID 06/10/20 [History] traZODone HCL 300 mg PO HS 06/10/20 [History] ALPRAZolam [Xanax] 0.5 mg PO BID PRN 08/25/20 [History] Aspirin [[place] Aspirin EC] 81 mg PO DAILY 08/25/20 [History] Dicyclomine [Bentyl] 20 mg PO QID 08/25/20 [History] Losartan [Cozaar] 50 mg PO DAILY 08/25/20 [History] Follow up Appointment(s)/Referral(s): Tamara Medrano MD [Primary Care Provider] - 1 Week Emily Rodriguez MD [Family Provider] - 1 Week Discharge Disposition: HOME SELF-CARE
[2020-08-26 14:14] LABS: African American GFR (CKD) 92.2 (60.0-200.0); Albumin 3.9 g/dL (3.80-4.90); Albumin/Globulin Ratio 1.7 (1.60-3.17); Anion Gap 6.2 mmol/L (4.00-12.00); BUN/Creat Ratio 28.75 Ratio (12.00-20.00); Carbon Dioxide 25.8 mmol/L (21.6-31.8); Chol/HDL Ratio 2.14; Globulin 2.3 g/dL (1.6-3.3); LDL Cholesterol,Calculated 58.4 mg/dL (0.0-131.0); Non-African American GFR(CKD) 79.6 (60.0-200.0); Potassium 4.3 mmol/L (3.5-5.5); Total Bilirubin 0.3 mg/dL (0.2-1.2); Total Protein 6.2 g/dL (6.2-8.2); VLDL Calculation 14.6 mg/dL (5.00-40.00)
--- NOTE | 2020-08-27 08:10 | ECHOF ---
Referral Reason:LV function MEASUREMENTS -------- HEIGHT: 167.6 cm WEIGHT: 79.8 kg BP: RVIDd: 3.3 cm (< 3.3) IVSd: 1.2 cm (0.6 - 1.1) LVIDd: 4.2 cm (3.9 - 5.3) LVPWd: 1.3 cm (0.6 - 1.1) IVSs: 1.7 cm LVIDs: 3.2 cm LVPWs: 1.8 cm LA Diam: 3.3 cm (2.7 - 3.8) LAESV Index (A-L): 19.75 ml/m Ao Diam: 3.2 cm (2.0 - 3.7) AV Cusp: 2.4 cm (1.5 - 2.6) MV EXCURSION: 13.362 mm (> 18.000) MV EF SLOPE: 28 mm/s (70 - 150) EPSS: 1.0 cm MV E James: 0.73 m/s MV DecT: 280 ms MV A James: 0.82 m/s MV E/A Ratio: 0.89 AR PHT: 787 ms RAP: 5.00 mmHg RVSP: 31.59 mmHg FINDINGS -------- Paced rhythm. This was a technically adequate study. The left ventricular size is normal. There is mild concentric left ventricular hypertrophy. Overa ll left ventricular systolic function is normal with, an EF between 55 - 60 %. The right ventricle is mildly enlarged. The left atrium is normal in size. The right atrium is normal in size. Interatrial and interventricular septum intact. Aortic valve is trileaflet and is mildly thickened. There is [id number] aortic regurgitation. The mitral valve leaflets are mildly thickened. Mild tricuspid regurgitation present. Right ventricular systolic pressure is normal at < 35 mmHg. Trace/mild (physiologic) pulmonic regurgitation. The aortic root size is normal. Normal inferior vena cava with normal inspiratory collapse consistent with estimated right atrial pre ssure of 5 mmHg. There is no pericardial effusion. CONCLUSIONS -------- 1. The left ventricular size is normal. 2. There is mild concentric left ventricular hypertrophy. 3. Overall left ventricular systolic function is normal with, an EF between 55 - 60 %. 4. The right ventricle is mildly enlarged. 5. Aortic valve is trileaflet and is mildly thickened. 6. The mitral valve leaflets are mildly thickened. 7. Mild tricuspid regurgitation present. 8. Trace/mild (physiologic) pulmonic regurgitation. 9. There is no pericardial effusion. DESK ASSISTANT: Marlys Atkinson RDCS
[2020-08-27] MEDS ORDERED: ASPIRIN 81 MG PO SCH (09:00)
--- NOTE | 2020-08-28 12:31 | P.STRESS ---
- Stress Test Note Stress Test Results/Findings: Exam Performed: NM stress lexiscan cardiolite Exam Date: 08/26/20 Reason for Exam: Chest Pain Height: 5 ft 6 in Weight: 79.83 kg Protocol: Lexiscan Stage: na Duration of Exercise: na Resting Heart Rate: 62 Resting Blood Pressure: 131/69 Maximum Achieved Heart Rate: 77 Maximum Achieved Blood Pressure: 131/69 85% PMHR: 135 100% PMHR: 159 METS: na Technologist Comment: Stress Test Results/Findings: At baseline EKG showed predominantly atrial paced rhythm, right bundle-branch block with ST depressions V3 through V6, inferior leads. Patient recieved IV infusion of Lexiscan 0.4mg and at peak infusion EKG showed no significant change from baseline Conclusions: 1. Nondiagnostic EKG response to Lexiscan infusion secondary to baseline EKG abnormalities. 2. Nuclear imaging to be reported separately.
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
== END 2020-08-26 15:25 | disposition home or self-care (01) | DRG 311 ==
LOC: EC 14:22 → 6NMEDSUR 15:18 → OBSVTOIN 08-26 13:11
PROVIDERS: ADMIT Internal Medicine; ATTEND Internal Medicine
DX: I20.0 Unstable angina (principal); I45.2 Bifascicular block; I11.9 Hypertensive heart disease without heart failure; J44.9 Chronic obstructive pulmonary disease, unspecified; E78.00 Pure hypercholesterolemia, unspecified; Z20.822 Contact with and (suspected) exposure to COVID-19; E78.5 Hyperlipidemia, unspecified; K59.03 Drug induced constipation; T40.605A Adverse effect of unspecified narcotics, initial encounter; F32.9 Major depressive disorder, single episode, unspecified; F41.9 Anxiety disorder, unspecified; M19.90 Unspecified osteoarthritis, unspecified site; I83.90 Asymptomatic varicose veins of unspecified lower extremity; G89.29 Other chronic pain; M54.9 Dorsalgia, unspecified; Z79.82 Long term (current) use of aspirin; Z79.1 Long term (current) use of non-steroidal anti-inflammatories (NSAID); Z79.890 Hormone replacement therapy; Z79.899 Other long term (current) drug therapy; Z87.891 Personal history of nicotine dependence; Z86.718 Personal history of other venous thrombosis and embolism; Z87.01 Personal history of pneumonia (recurrent); Z87.81 Personal history of (healed) traumatic fracture; Z87.39 Personal history of other diseases of the musculoskeletal system and connective tissue; Z87.440 Personal history of urinary (tract) infections; Z90.49 Acquired absence of other specified parts of digestive tract; Z90.89 Acquired absence of other organs; Z96.612 Presence of left artificial shoulder joint; Z96.651 Presence of right artificial knee joint; Z96.642 Presence of left artificial hip joint; Z87.19 Personal history of other diseases of the digestive system; Z95.0 Presence of cardiac pacemaker; Z98.890 Other specified postprocedural states; Z88.0 Allergy status to penicillin; Z91.048 Other nonmedicinal substance allergy status; Z80.1 Family history of malignant neoplasm of trachea, bronchus and lung; Z80.0 Family history of malignant neoplasm of digestive organs; Z83.3 Family history of diabetes mellitus; Z82.61 Family history of arthritis; Z82.49 Family history of ischemic heart disease and other diseases of the circulatory system; Z83.2 Family history of diseases of the blood and blood-forming organs and certain disorders involving the immune mechanism; Z84.1 Family history of disorders of kidney and ureter
CPT/HCPCS: 78452; 80053; 80061; 84484; 85025; 85730; 87635; 93005; 93017; 93306; 94760; 99285

== ENCOUNTER 2020-10-13 16:03 | Emergency (ER) | payer MEDICARE, OTHER ==
[2020-10-13] MEDS ORDERED: MAGNESIUM SULFATE-D5W PMX 1 GM in DEXTROSE/WATER 1 100ML.BAG IVPB ONE (19:11)
[2020-10-13] MEDS ORDERED: METOCLOPRAMIDE 5 MG/ML 2 ML VIAL IVP STA (19:11)
[2020-10-13] MEDS ORDERED: diphenhydrAMINE 50 MG/ML 1 ML VIAL IVP STA (19:11)
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
[2020-10-13 19:30] LABS: Anisocytosis Slight; Basophils # (A) 0.1 k/uL (0-0.2); Basophils % (A) 0 %; Eosinophils # (A) 0.1 k/uL (0-0.7); Eosinophils % (A) 1 %; HCT 42.6 % (34.0-46.0); HGB 13.5 gm/dL (11.4-16.0); Hypochromasia Slight; Lymphocytes # (A) 1.9 k/uL (1.0-4.8); Lymphocytes % (A) 16 %; MCH 28.2 pg (25.0-35.0); MCHC 31.7 g/dL (31.0-37.0); Mean Platelet Volume 7.3; Monocytes # (A) 0.6 k/uL (0-1.0); Monocytes % (A) 5 %; Neutrophils # (A) 8.7 k/uL (1.3-7.7); Neutrophils % (A) 75 %; Platelet Count 268 k/uL (150-450); RBC 4.79 m/uL (3.80-5.40); RDW 17.3 % (11.5-15.5); WBC 11.6 k/uL (3.8-10.6)
[2020-10-13 19:33] VITALS: RESP 18
[2020-10-13 19:39] LABS: MCV 88.9 fL (80.0-100.0)
[2020-10-13 19:40] LABS: ALT 27 U/L (4-34); AST 66 U/L (14-36); African American GFR (CKD) >90 (>60 ml/min/1.73 sqM); Albumin 4.8 g/dL (3.5-5.0); Alkaline Phosphatase 129 U/L (38-126); Anion Gap 8 mmol/L; Blood Urea Nitrogen 18 mg/dL (7-17); Calcium 9.8 mg/dL (8.4-10.2); Carbon Dioxide 26 mmol/L (22-30); Chloride 104 mmol/L (98-107); Glucose 124 mg/dL (74-99); Non-African American GFR(CKD) >90 (>60 ml/min/1.73 sqM); Partial Thromboplastin Time 23.9 sec (22.0-30.0); Prothrombin Time 10.3 sec (9.0-12.0); Sodium 138 mmol/L (137-145)
[2020-10-13 19:42] LABS: Potassium 5.1 mmol/L (3.5-5.1)
[2020-10-13 19:52] LABS: Appearance,Urine Clear (Clear); Bilirubin,Urine Negative (Negative); Blood,Urine Negative (Negative); Color,Urine Yellow; Glucose,Urine (UA) Negative (Negative); Ketones,Urine Negative (Negative); Leukocyte Esterase,Urine Small (Negative); Mucus,Urine Rare /hpf; Nitrite,Urine Negative (Negative); PH, Urine 7.5 (5.0-8.0); Protein,Urine Negative (Negative); RBC,Urine 2 /hpf (0-5); Specific Gravity,Urine 1.013 (1.001-1.035); Squamous Epithelial Cell,Urine <1 /hpf (0-4); Urobilinogen,Urine <2.0 mg/dL (<2.0); WBC,Urine 4 /hpf (0-5)
[2020-10-13] MEDS ORDERED: MORPHINE SULFATE 4 MG/ML SYRINGE IVP STA (20:17)
--- NOTE | 2020-10-13 20:24 | CT ---
EXAMINATION TYPE: CT brain kiel gonzalez con DATE OF EXAM: 10/13/2020 COMPARISON: None available. HISTORY: headache, fall CT DLP: 1331.2 mGycm Automated exposure control for dose reduction was used. TECHNIQUE: CT scan of the head and cervical spine are performed without contrast. FINDINGS: There is no acute intracranial hemorrhage, mass effect, or midline shift identified. The ventricles and sulci are within normal limits in size. The globes are intact and the visualized sin uses are clear. Cervical spine is visualized in its entirety from C1 through upper thoracic levels and demonstrates s atisfactory alignment without evidence of acute fracture or dislocation. There is moderate cervical s pondylosis. Prevertebral soft tissue appears within normal limits. The C1-C2 articulation is unrema rkable. IMPRESSION: 1. There is no acute fracture or dislocation evident in the cervical spine. 2. No acute intracranial hemorrhage, mass effect, or midline shift is seen.
[2020-10-13 20:28] VITALS: PULSE 81
--- NOTE | 2020-10-13 20:40 | CT ---
EXAMINATION TYPE: CT thor lumbar spine wo con DATE OF EXAM: 10/13/2020 COMPARISON: None available. HISTORY: chronic back pain, fall CT DLP: 1806 mGycm TECHNIQUE: Axial CT images of the thoracolumbar spine was performed without contrast. Coronal and sag ittal reformats were provided and reviewed. Automated exposure control for dose reduction was used. FINDINGS: Prior T12-L4 posterior instrumented fusion and multilevel laminectomies seen. There is no acute fracture or subluxation of the thoracolumbar spine. There is mild thoracic and mode rate lumbar spondylosis. The vertebral body heights are grossly maintained. No significant paraspinal soft tissue abnormality. The visualized lungs demonstrate moderate centrilobular emphysema with atelectatic changes. IMPRESSION: NO ACUTE ABNORMALITY.
--- NOTE | 2020-10-13 22:04 | XR ---
EXAMINATION TYPE: XR shoulder complete LT DATE OF EXAM: 10/13/2020 COMPARISON: NONE HISTORY: Pain TECHNIQUE: Shoulder examined in 3 views FINDINGS: Slight there is a left shoulder prosthesis The prosthesis humeral head articulates with the glenoid. The acromio-clavicular junction is normal. No acute fractures or dislocations are evident. A follow up study can be performed 7-10 days from acute trauma for continued pain. IMPRESSION: 1. Normal three-view left Shoulder with a left shoulder prosthesis.
--- NOTE | 2020-10-13 22:05 | XR ---
EXAMINATION TYPE: XR Hip LT and AP Pelvis DATE OF EXAM: 10/13/2020 COMPARISON: None HISTORY: Fall, pain TECHNIQUE: AP pelvis and two-view left hip FINDINGS: There is a left hip prosthesis is present. No acute fracture or dislocation is evident. Nor mal bowel gas is present laminectomies have been performed in the lower lumbar spine. Spine fixation is evident. IMPRESSION: 1. No acute osseous abnormality post trauma
--- NOTE | 2020-10-13 22:07 | XR ---
EXAMINATION TYPE: XR chest 2V DATE OF EXAM: 10/13/2020 COMPARISON: 10/19/2016 INDICATION: Cough, pain TECHNIQUE: Frontal and lateral views of the chest are obtained. FINDINGS: The heart size is normal. The pulmonary vasculature is normal. The lungs are clear. No acute fractures are identified. IMPRESSION: 1. No acute pulmonary process.
[2020-10-13] MEDS ORDERED: oxyCODONE-APAP 10-325MG 1 EACH TAB PO PRN (22:30)
[2020-10-13 23:07] VITALS: BP 153/87; TEMP 97.9
== END 2020-10-13 22:50 | disposition home or self-care (01) ==
LOC: EC 16:03
DX: M25.512 Pain in left shoulder (principal); M25.552 Pain in left hip; R51.9 Headache, unspecified; G89.29 Other chronic pain; I10 Essential (primary) hypertension; E78.5 Hyperlipidemia, unspecified; M19.90 Unspecified osteoarthritis, unspecified site; F41.9 Anxiety disorder, unspecified; F32.9 Major depressive disorder, single episode, unspecified; J44.9 Chronic obstructive pulmonary disease, unspecified; Z86.718 Personal history of other venous thrombosis and embolism; Z88.0 Allergy status to penicillin; Z90.49 Acquired absence of other specified parts of digestive tract; Z95.0 Presence of cardiac pacemaker; Z90.89 Acquired absence of other organs; Z87.891 Personal history of nicotine dependence
CPT/HCPCS: 99284; 96365; 96375 ×3; 36415; 93005; 80053; 84484; 85025; 85610; 85730; 81001; 73030; 73502; 71046; 72128; 72125; 72131; 70450; J2270; J1200; J2765; J3475

== ENCOUNTER → 2021-01-07 | Outpatient (CLI) | payer MEDICARE, OTHER ==
--- NOTE | 2021-01-08 07:56 | US ---
EXAMINATION TYPE: US venous doppler duplex LE LT DATE OF EXAM: 01/07/2021 4:19 PM COMPARISON: NONE CLINICAL HISTORY: I82.402 Acute embolism and thrombosis. fall, left thigh pain, swelling SIDE PERFORMED: Left TECHNIQUE: The lower extremity deep venous system is examined utilizing real time linear array sonog joan with graded compression, doppler sonography and color-flow sonography. VESSELS IMAGED: Common Femoral Vein Deep Femoral Vein Greater Saphenous Vein * Femoral Vein Popliteal Vein Small Saphenous Vein * Proximal Calf Veins (* superficial vessels) Left Leg: Negative for DVT IMPRESSION: 1. Left lower extremity ultrasound negative for deep venous thrombosis
== END | disposition home or self-care (01) ==
LOC: RADUSWWP 15:54
PROVIDERS: ATTEND Orthopaedic Surgery
DX: R22.42 Localized swelling, mass and lump, left lower limb (principal); M79.605 Pain in left leg

== ENCOUNTER → 2024-01-19 | Outpatient (CLI) | payer MEDICARE, OTHER ==
--- NOTE | 2024-01-19 11:17 | CTL ---
EXAMINATION TYPE: CT Low Dose Lung DATE OF EXAM ORDERED: 01/19/2024 COMPARISON: CTA chest dated 10/13/2016 CLINICAL INDICATION: Female, 63 years old with history of Z12.2, ENCNTR SCREEN FOR MALIGNANT NEOPLAS F17.210; PHH, Personal hx nicotine dependence, 1 ppd x 45 years, current smoker, hx COPD, chronic bro nchitis, peripheral vascualar disease., Lung cancer screening, History of Smoking/tobacco use. TECHNIQUE: Low dose computed tomography scan was performed through the chest at 1 mm thick sections a nd reconstructed images in multiple planes at 1 mm and [address] DLP: 155.[address] CTDI: 4.3 mGy Automated exposure control for dose reduction was used. CT DIAGNOSTIC QUALITY: Satisfactory FINDINGS: There are marked emphysematous changes with an upper lobe predominance. There is diffuse groundglass opacity in the lungs greatest in the upper lobes, etiology indeterminant. There is no suspicious lung mass or nodule. There is no pleural effusion or pneumothorax. Moderate cardiomegaly. The thoracic aorta is normal in caliber. There is mild dilatation of the main pulmonary artery raisin g the question of pulmonary hypertension. There is no definite mediastinal, hilar or axillary adenopathy. Limited scanning through the upper abdomen reveals no gross abnormality. There are postsurgical rodrigues es of thoracic and lumbar fusion but no focal osseous abnormalities. IMPRESSION: 1. BI-RADS Category 1 negative. Continue routine screening at yearly intervals. No suspicious lung ma ss or nodule. 2. Marked emphysematous changes with suggestion of diffuse groundglass opacity in the upper lobes. T hese could reflect acute inflammation or edema. 3. Mildly dilated main pulmonary artery raising question of pulmonary hypertension [facility], , 01/19/2024 11:15 AM
== END | disposition home or self-care (01) ==
LOC: RADCTMAIN 10:26
PROVIDERS: ATTEND Internal Medicine
DX: Z12.2 Encounter for screening for malignant neoplasm of respiratory organs (principal); J44.9 Chronic obstructive pulmonary disease, unspecified; F17.210 Nicotine dependence, cigarettes, uncomplicated
CPT/HCPCS: 71271

== ENCOUNTER → 2024-03-20 | Outpatient (CLI) | payer MEDICARE, OTHER ==
--- NOTE | 2024-03-20 13:58 | CT ---
EXAMINATION TYPE: CT hip LT wo con DATE OF EXAM: 03/20/2024 12:00 PM COMPARISON: None. CLINICAL INDICATION: Female, 63 years old with history of S76.019A STRAIN OF MUSCLE, FASCIA AND TENDO N OF UN, Increased left hip pain TECHNIQUE: Contrast used: mL of , (none if empty) Oral contrast used: (none if empty) Axial images at 3 mm thick sections. Reconstructed images in the coronal and sagittal planes. FINDINGS: There is a right hip prosthesis with acetabular component. No dislocation is evident. No acute fractu res adjacent to the prosthesis is evident. No lucency adjacent to the prosthesis to suggest loosening is identified. Remaining osseous structures appear intact. Sacroiliac joint degenerative vacuum phenomenon is noted. No suspicious fluid collections evident. No joint effusion. Soft tissue density appears normal. IMPRESSION: 1. NO SUSPICIOUS CHANGES AT THE LEFT HIP PROSTHESIS. [facility], , 03/20/2024 1:56 PM
== END | disposition home or self-care (01) ==
LOC: RADCTMAIN 11:34
PROVIDERS: ATTEND Orthopaedic Surgery
DX: S76.012A Strain of muscle, fascia and tendon of left hip, initial encounter (principal); Z96.642 Presence of left artificial hip joint; X58.XXXA Exposure to other specified factors, initial encounter